=== PATIENT | female | born 1965 | race African-American/Black ===

== ENCOUNTER 2024-05-14 09:49 | Outpatient (AMB) | payer OTHER, SELFPAY ==
--- NOTE | 2024-05-14 09:50 | AM.OFFWIN_ITS ---
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 She did begin vomiting. She rested in bed all day. Vomiting stopped by the end of the day. Vomiting was nonbloody. She did not take any at-home medications. The next day however she continued to feel a mucus in the back of her throat. Her belly felt bloated and gassy. She denies any abdominal pain. She has been able to tolerate Tea and a bland diet. She denies any medical history. She does not currently have a primary care provider. She denies any sick contacts, recent travel, fever, chills, chest pain, sob, reba rrhea, abdominal pain. She also complains of a corn on the bottom of her left foot. Exam: Awake alert NAD, accompanied by Son Scleras nonicteric MMM Pharynx within normal limits Regular rate and rhythm Lung sounds clear to auscultation bilat Abdomen is soft, normoactive bowel sounds, nontender [place] plantar aspect left foot Plan: Supportive care to include liberal hydration, diet as tolerated. Start famotidine to help with what sounds like reflux symptoms status post gastro enteritis. We will prescribe p.r.n. Zofran to help with any nausea or vomiting. However this seems to have resolved at this time. I have encouraged her to establish care with a primary care provider here to get a referral to treat the corn on the bottom of her left foot. I have asked the net front end developer to arrange this. In regards to her chief complaint of nausea and vomiting, this should resolve. Educated on reasons to return to the office sooner. This note is constructed using voice recognition software. While every effort has been made to ensure accuracy in building inspection engineer, still errors may have been included Sometimes, these errors may affect the content or meaning of the given sentence . PFSH Social History Patient Tobacco Use Status: Never used Tobacco Physical Exam Vital Signs: Last Vital Signs Temp 97.9 F 05/14/24 09:55 Pulse 86 05/14/24 09:55 Resp 15 05/14/24 09:55 BP 134/76 05/14/24 09:55 Pulse Ox 96 05/14/24 09:55 Oxygen Delivery Method Room Air 05/14/24 09:55 BMI result Body Mass Index 33.0 Assessment & Plan Assessment & Plan (1) Gastroenteritis: Code(s): K52.9 - Noninfective gastroenteritis and colitis, unspecified Plan: . (2) GERD without esophagitis: Code(s): K21.9 - Gastro-esophageal reflux disease without esophagitis Plan: . (3) [place] of foot: Code(s): L84 - Corns and callosities Plan: . Medications: New famotidine 20 mg PO BEDTIME 30 tabs 0RF ondansetron HCl 4 mg PO Q8H 3 days PRN 15 tabs 0RF nausea and vomiting Coding Level of Care Code Est Pt Level 4 (65289) Diagnoses Gastroenteritis K52.9 GERD without esophagitis K21.9 [place] of foot L84
[2024-05-14 09:55] VITALS: BP 134/76; PULSE 86; RESP 15; TEMP 36.6; O2SAT 96; BMI 33.0
== END 2024-05-14 10:14 | disposition home or self-care (01) ==
PROVIDERS: PCP Family Medicine; Visit Provider Nurse Practitioner Family
DX: K52.9 Noninfective gastroenteritis and colitis, unspecified (principal); K21.9 Gastro-esophageal reflux disease without esophagitis; L84 Corns and callosities
CPT/HCPCS: 99214

== ENCOUNTER 2024-05-19 09:26 | Outpatient (AMB) | payer OTHER, SELFPAY ==
--- NOTE | 2024-05-19 09:28 | MHC.PC.OV ---
Vital Signs 05/19/24 09:32 Height 5 ft 2 in Weight 179 lb BMI 32.7 BP 102/64 Blood Pressure Location Rt brachial Position Sitting Respiration 12 Pulse 76 Pulse Source Pulse Oximeter Pulse Oximetry (%) 97 Oxygen Delivery Method Room Air Intake Visit Reasons: est care Intake Note: Patient is here to establish care and reports no concerns at this time. Color Specialist Required: No Accompanied by: Self / Same As Patient Allergies No Known Allergies Allergy (Verified 05/19/24 09:37) Tobacco use date assessed: 05/19/24 Dental Screening Dental Screen Date: 05/19/24 Did you have a dental visit in the last 12 months?: No Did you have a dental problem in the last 6 months where you did not have access to dental care?: No Was dental information given to patient?: Yes HPI HPI Comments History of Present Illness Details 58 year old female with no chronic health conditions presenting to establish [facility] She has a corn on the bottom of her foot. Was bothering her quite a bit a few weeks ago but discomfort has subsided. She did not try any over the counter remedies She was recently seen in urgent care for dyspepsia. Symptoms have resolved. 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 Declines colonoscopy ROS see HPI PHYSICAL EXAM: GENERAL: Alert and oriented x 3. NAD EYES: EOMI. Anicteric. HENT: Moist mucous membranes. No scleral icterus. No cervical lymphadenopathy. LUNGS: Clear to auscultation bilaterally. CARDIOVASCULAR: Regular rate and rhythm. No murmur. No JVD. ABDOMEN: Soft, non-tender +bs EXTREMITIES: No edema. Non-tender. SKIN: No rashes or lesions. Warm. NEUROLOGIC: No focal neurological deficits. CN II-XII grossly intact PSYCHIATRIC: Cooperative. Appropriate mood and affect [facility], [facility] Medical History Gastroenteritis [place] of foot GERD without esophagitis Surgical History No pertinent past surgical history Social History Household Members: Children Housing: House Are you a primary landcare officer to a significant other at home: No Do you presently have visiting nurse or other home services: No Alcohol intake: never Patient Tobacco Use Status: Never used Tobacco e-Cigarette/Vaping Use: Never Used service: No Current occupational status: employed Current occupation: [employer] Cognitive needs: No Hearing needs: No Vision needs: Yes (wears glasses, needs eye doctor) Questionnaire PHQ-9 Over the last 2 weeks, how often have you been bothered by any of the following problems? 29797 - PHQ-9 Billing: Patient declined-do not bill Source: Developed by Drs. Jaylon Simons, Elsa Smith, Phani Cooper and colleagues, with an educational maude from [employer]. Thrive Questionnaire Date Thrive assessed: 05/19/24 I am a: Patient What is your living situation today?: I choose not to answer this question Within the past 12 months, did the food you bought not last and you didn't have the money to get more?: I choose not to answer this question Within the past 12 months, did you worry whether your food would run out before you got money to buy more?: I choose not to answer this question Do you have trouble paying for medicines?: No Do you have trouble getting transportation to medical appointments?: No Do you have trouble paying your heating and electricity bill?: No Do you have trouble taking care of your child, family member or friend?: No Do you have trouble with day-to-day activities such as bathing, preparing meals, shopping, managing finances, etc.?: I choose not to answer this question Are you currently unemployed and looking for a job?: I choose not to answer this question Are you interested in more education?: I choose not to answer this question Please select the resources that you would like help with: Education Currently or been in a relationship where the following occur: I choose not to answer THRIVE Score: 0 AUDIT C Alcohol Use Questionnaire (AUDIT-C) 1. How often do you have a drink containing alcohol?: Never Total Score: 0 DUANE-7 AMB Questionnaire DUANE-7 Date DUANE - 7 assessed: 05/19/24 Feeling nervous, anxious, or on edge: 0 = Not at all Not being able to stop or control worryin = Not at all Worrying too much about different things: 0 = Not at all Trouble relaxin = Not at all Being so restless that it is hard to sit still: 0 = Not at all Becoming easily annoyed or irritable: 0 = Not at all Feeling afraid as if something awful might happen: 0 = Not at all Total DUANE-7 score (0-4 normal; 5-9 mild; 10-14 moderate; 15-21 severe): 0 Source: Developed by Drs. Jaylon Simons, Elsa Smith, Phani Cooper and colleagues, with an educational maude from [employer]. DUANE-7 Assessment Billing DUANE-7 Assessment Tool: DUANE-7 Assessment 27166 Physical exam (Primary Care) Vital Signs: Last Vital Signs Pulse 76 05/19/24 09:32 Resp 12 05/19/24 09:32 BP 102/64 05/19/24 09:32 Pulse Ox 97 05/19/24 09:32 Oxygen Delivery Method Room Air 05/19/24 09:32 BMI result Body Mass Index 32.7 Tobacco/Smoking Status: Tobacco use Status Tobacco use date assessed 05/19/24 05/19/24 09:44 Patient Tobacco Use Status Never used Tobacco 05/19/24 09:43 e-Cigarette/Vaping Use Never Used 05/19/24 09:44 Thrive Assessment: Date of Thrive Assessment Date Thrive assessed 05/19/24 05/19/24 09:28 Currently or been in a relationship where the following occur: I choose not to answer Assessment and Plan Assessment & Plan (1) Establishing care with new doctor, encounter for: Code(s): Z76.89 - Persons encountering health services in other specified circumstances Plan: 58 year old female to establish care. Past medical surgical social and family history reviewed. Cologuard, labs ordered. [place] is improving (2) GERD without esophagitis: Code(s): K21.9 - Gastro-esophageal reflux disease without esophagitis Plan: Mostly resolved. Continue pepcid prn Orders: Orders Comprehensive Met. Panel Today K21.9 - Gastro-esophageal reflux disease without esophagitis, R53.83 - Other fatigue, Z13.0 - Encounter for screening for diseases of the blood and blood-forming organs and certain disorders involving the immune mechanism, Z13.220 - Encounter for screening for lipoid disorders, Z13.228 - Encounter for screening for other metabolic disorders, Z76.89 - Persons encountering health services in other specified circumstances TSH reflex Free T4 Today K21.9 - Gastro-esophageal reflux disease without esophagitis, R53.83 - Other fatigue, Z13.0 - Encounter for screening for diseases of the blood and blood-forming organs and certain disorders involving the immune mechanism, Z13.220 - Encounter for screening for lipoid disorders, Z13.228 - Encounter for screening for other metabolic disorders, Z76.89 - Persons encountering health services in other specified circumstances Vitamin B12 and Folate Today K21.9 - Gastro-esophageal reflux disease without esophagitis, R53.83 - Other fatigue, Z13.0 - Encounter for screening for diseases of the blood and blood-forming organs and certain disorders involving the immune mechanism, Z13.220 - Encounter for screening for lipoid disorders, Z13.228 - Encounter for screening for other metabolic disorders, Z76.89 - Persons encountering health services in other specified circumstances Vitamin D 25-OH (D2 and D3) Today K21.9 - Gastro-esophageal reflux disease without esophagitis, R53.83 - Other fatigue, Z13.0 - Encounter for screening for diseases of the blood and blood-forming organs and certain disorders involving the immune mechanism, Z13.220 - Encounter for screening for lipoid disorders, Z13.228 - Encounter for screening for other metabolic disorders, Z76.89 - Persons encountering health services in other specified circumstances Complete Blood Count Auto Diff Today K21.9 - Gastro-esophageal reflux disease without esophagitis, R53.83 - Other fatigue, Z13.0 - Encounter for screening for diseases of the blood and blood-forming organs and certain disorders involving the immune mechanism, Z13.220 - Encounter for screening for lipoid disorders, Z13.228 - Encounter for screening for other metabolic disorders, Z76.89 - Persons encountering health services in other specified circumstances Lipid Panel Today K21.9 - Gastro-esophageal reflux disease without esophagitis, R53.83 - Other fatigue, Z13.0 - Encounter for screening for diseases of the blood and blood-forming organs and certain disorders involving the immune mechanism, Z13.220 - Encounter for screening for lipoid disorders, Z13.228 - Encounter for screening for other metabolic disorders, Z76.89 - Persons encountering health services in other specified circumstances Coding Level of Care Code New Pt Prev Care 40-64y(84328) Diagnoses Establishing care with new doctor, encounter for Z76.89 GERD without esophagitis K21.9 Additional Codes DUANE-7 Assessment Billing - DUANE-7 Assessment Tool: DUANE-7 Assessment 45843 ([id number])
[2024-05-19 09:32] VITALS: BP 102/64; PULSE 76; RESP 12; O2SAT 97; BMI 32.7
== END 2024-05-19 10:06 | disposition home or self-care (01) ==
PROVIDERS: PCP Family Medicine; Visit Provider Internal Medicine
DX: K21.9 Gastro-esophageal reflux disease without esophagitis (principal)
CPT/HCPCS: 99203

== ENCOUNTER 2024-05-19 10:25 | Outpatient (REF) | payer OTHER, SELFPAY ==
[2024-05-19 14:09] LABS: MANUAL DIFF FLAG NO
[2024-05-19 14:14] LABS: Basophils Percent Auto 0.8 % (0-2); Eosinophils Absolute Auto 0.1 X10*3/uL (0.0-0.4); Eosinophils Percent Auto 2.3 % (0-4); Hematocrit 39.5 % (37.0-47.0); Hemoglobin 12.3 g/dl (12.0-16.0); Imm Gran Abs Auto 0.01 X10*3/uL (0.00-0.03); Imm Gran Pct Auto 0.3 % (0.0-0.4); Lymphocytes Absolute Auto 1.1 X10*3/uL (1.2-4.9); Lymphocytes Percent Auto 28.3 % (20-40); Mean Corpuscular HGB Conc 31.1 g/dl (31.0-35.0); Mean Corpuscular Hemoglobin 27.8 pg (27.0-33.0); Mean Corpuscular Volume 89.2 fL (80.0-98.0); Mean Platelet Volume 10.6 fL (9.4-12.3); Monocytes Absolute Auto 0.3 X10*3/uL (0.1-1.2); Monocytes Percent Auto 6.7 % (2-11); Neutrophils Absolute Auto 2.4 x10*3/uL (2.0-8.3); Neutrophils Percent Auto 61.6 % (45-73); Platelet Count 290 X10*3/uL (160-400); Red Blood Count 4.43 X10*6/uL (4.20-5.50); Red Cell Distribution Width 14.1 % (11.0-16.0); White Blood Count 3.9 X10*3/uL (4.8-10.8)
[2024-05-19 14:39] LABS: Alanine Aminotransferase 14 U/L (0-31); Albumin Level 4.2 g/dL (3.5-5.0); Alkaline Phosphatase 86 U/L (39-117); Anion Gap 10 (12-20); Aspartate Amino Transferase 18 U/L (5-31); Bilirubin Total 0.5 mg/dL (0.0-1.0); Blood Urea Nitrogen 9 mg/dL (9-16); Calcium 9.8 mg/dL (8.4-10.2); Carbon Dioxide 27 mmol/L (22-29); Chloride 107 mmol/L (96-108); Cholesterol 199 mg/dL (<200); Estimated Glomerular Filt Rate > 60; Glucose Random 74 mg/dL (60-115); HDL Cholesterol 54 mg/dL (>40); LDL Cholesterol Calculated 129 mg/dL (<100); Sodium 140 mmol/L (135-145); Total Protein 7.3 g/dL (6.5-8.0); Triglycerides 84 mg/dL (<150)
[2024-05-19 15:03] LABS: Folate 11.1 ng/mL (> or = 4.0); Vitamin B12 680 pg/mL (200-900)
[2024-05-23 15:48] LABS: Vitamin D 25-OH, D2 <4 ng/mL; Vitamin D 25-OH, D3 26 ng/mL; Vitamin D 25-OH, Total 26 ng/mL (30-100)
== END 2024-05-19 10:26 | disposition home or self-care (01) ==
LOC: HO.WFDLDS 10:25
PROVIDERS: Visit Provider Internal Medicine
DX: Z76.89 Persons encountering health services in other specified circumstances (principal); K21.9 Gastro-esophageal reflux disease without esophagitis; Z13.0 Encounter for screening for diseases of the blood and blood-forming organs and certain disorders involving the immune mechanism; Z13.228 Encounter for screening for other metabolic disorders; Z13.220 Encounter for screening for lipoid disorders; R53.83 Other fatigue
CPT/HCPCS: 36415; 80053; 80061; 82306; 82607; 82746; 84443; 85025

== ENCOUNTER 2024-12-25 09:11 | Outpatient (AMB) | payer OTHER, SELFPAY ==
--- NOTE | 2024-12-25 09:23 | A.OFFPC_ITS ---
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 Prior PCP:? Last office visit/CPE:? Acute issue(s):? ?? PMHx:? None SurgHx:? none FHx:? Dad: Glaucoma. SocHx: Nonsmoker. EtOH: None. PFSH Medical History Gastroenteritis [place] of foot GERD without esophagitis Surgical History No pertinent past surgical history Social History Household Members: Children Housing: House Are you a primary point of care technician to a significant other at home: No Do you presently have visiting nurse or other home services: No 75 years or older and lives alone: No Alcohol intake: never Patient Tobacco Use Status: Never used Tobacco e-Cigarette/Vaping Use: Never Used service: No Current occupational status: employed Current occupation: [employer] Cognitive needs: No Hearing needs: No Vision needs: Yes (wears glasses, needs eye doctor) Questionnaire PHQ-9 Over the last 2 weeks, how often have you been bothered by any of the following problems? 1. Little interest or pleasure in doing things: not at all 2. Feeling down, depressed, or hopeless: not at all 4. Feeling tired or having little energy: not at all 5. Poor appetite or overeating: not at all 6. Feeling bad about yourself - or that you are a failure or have let yourself or your family down: not at all 7. Trouble concentrating on things, such as reading the newspaper or watching television: not at all 8. Moving or speaking so slowly that other people could have noticed. Or the opposite - being so fidgety or restless that you have been moving around a lot more than usual: not at all 9. Thoughts that you would be better off or of hurting yourself in some way: not at all Source: Developed by Drs. Jaylon Simons, Elsa Smith, Phani Cooper and colleagues, with an educational maude from [employer]. Thrive Questionnaire Date Thrive assessed: 12/25/24 I am a: Patient What is your living situation today?: I choose not to answer this question Within the past 12 months, did the food you bought not last and you didn't have the money to get more?: I choose not to answer this question Within the past 12 months, did you worry whether your food would run out before you got money to buy more?: I choose not to answer this question Do you have trouble paying for medicines?: I choose not to answer this question Do you have trouble getting transportation to medical appointments?: I choose not to answer this question Do you have trouble paying your heating and electricity bill?: I choose not to answer this question Do you have trouble taking care of your child, family member or friend?: I choose not to answer this question Do you have trouble with day-to-day activities such as bathing, preparing meals, shopping, managing finances, etc.?: I choose not to answer this question Are you currently unemployed and looking for a job?: I choose not to answer this question Are you interested in more education?: I choose not to answer this question Please select the resources that you would like help with: Education Currently or been in a relationship where the following occur: I choose not to answer THRIVE Score: 0 AUDIT C Alcohol Use Questionnaire (AUDIT-C) 1. How often do you have a drink containing alcohol?: Never Total Score: 0 Score Reviewed/Action Taken: Yes DUANE-7 AMB Questionnaire DUANE-7 Date DUANE - 7 assessed: 12/25/24 Feeling nervous, anxious, or on edge: 0 = Not at all Not being able to stop or control worryin = Not at all Worrying too much about different things: 0 = Not at all Trouble relaxin = Not at all Being so restless that it is hard to sit still: 0 = Not at all Becoming easily annoyed or irritable: 0 = Not at all Feeling afraid as if something awful might happen: 0 = Not at all Total DUANE-7 score (0-4 normal; 5-9 mild; 10-14 moderate; 15-21 severe): 0 Source: Developed by Drs. Jaylon Simons, Elsa Smith, Phani Cooper and colleagues, with an educational maude from [employer]. DUANE-7 Assessment Billing DUANE-7 Assessment Tool: DUANE-7 Assessment 30261 Review of Systems Const Denies chills, Denies fatigue, Denies fever(s), Denies headache(s) and Denies weakness Eyes Denies change in vision ENT Denies dizziness, Denies headache(s), Denies hearing loss, Denies nasal congestion, Denies sinus pain, Denies sinus pressure and Denies sore throat Card Denies chest pain, Denies lightheadedness, Denies dyspnea and Denies other (palpitations) Resp Denies cough, Denies dyspnea and Denies wheezing GI Denies abdominal pain, Denies melena, Denies hematochezia, Denies change in bowel habits, Denies dyspepsia and Denies nausea Denies hematuria and Denies dysuria Musc Denies abnormal gait, Denies myalgias, Denies arthralgias, Denies numbness and Denies tingling Skin/Breast Denies rash, Denies unusual bruising and Denies wounds Neuro Denies abnormal gait, Denies dizziness, Denies headache(s), Denies memory loss, Denies numbness, Denies Sensory deficit (Neuro), Denies tingling and Denies weakness Psych Denies anxiety, Denies depression and Denies memory loss Endo Denies cold intolerance, Denies fatigue, Denies heat intolerance, Denies polydipsia and Denies polyuria Brenden/Lymph Denies easy bleeding and Denies easy bruising Aller/Immun Denies wheezing Physical exam (Primary Care) Vital Signs: Last Vital Signs Temp 97.8 F 12/25/24 09:36 Pulse 84 12/25/24 09:36 Resp 14 12/25/24 09:36 BP 120/78 12/25/24 09:36 Pulse Ox 97 12/25/24 09:36 Oxygen Delivery Method Room Air 12/25/24 09:36 BMI result Body Mass Index 33.1 Tobacco/Smoking Status: Tobacco use Status Tobacco use date assessed 12/25/24 12/25/24 09:39 Patient Tobacco Use Status Never used Tobacco 12/25/24 09:24 e-Cigarette/Vaping Use Never Used 12/25/24 09:24 Thrive Assessment: Date of Thrive Assessment Date Thrive assessed 12/25/24 12/25/24 09:39 Currently or been in a relationship where the following occur: I choose not to answer Const General: no acute distress, well developed, alert and awake Nutritional Appearance: well nourished Orientation/consciousness: patient oriented x3 HENMT Head: Yes normocephalic and Yes atraumatic Ears: hearing grossly normal bilaterally and TM's normal bilaterally General nose exam: Normal external nose present and Normal nares present Mouth: Normal oral and palatal mucosa present and moist mucous membranes Teeth and gingiva: dentition normal Throat: Yes posterior oropharynx normal Eyes General: appearance normal, both eyes and all related structures Pupils: Equal, round and reactive pupils present and Pupil accommodation reflex normal EOM: EOMs intact bilaterally Neck Neck: Yes normal visual inspection, Yes no lymphadenopathy and Yes trachea midline Thyroid: Thyroid normal Carotids: no bruits Lymphatic: no lymphadenopathy noted Chest Chest palpation & inspection: normal inspection of the chest Resp Effort & Inspection: normal respiratory effort Auscultation: clear to auscultation bilaterally Cardio Rate: regular rate Rhythm: regular rhythm Heart sounds: S1 normal heart sound present, S2 normal heart sound present, no gallops, no murmurs and no rubs Bruits: no abdominal aortic bruits and no carotid bruits GI Palpation (GI): No Abdominal aortic bruit present, Soft to palpation, nontender, No hepatosplenomegaly present and No Rebound tenderness present Auscultation: normal bowel sounds General: Yes no CVA tenderness Back/Spine/Pelvis Back: no CVA tenderness Cervical Spine: cervical ROM normal and No Cervical spine tenderness Thoracic/Lumbar Spine: thoraco-lumbar ROM normal, No pain with thoraco-lumbar ROM, No thoracic spinal tenderness and No lumbar spinal tenderness Skin Lesions: no lesions Rashes: no rashes Trauma: no lacerations or abrasions Wounds: no wounds Nails: normal Neuro General: patient oriented x3 Cranial nerves: Yes Equal, round and reactive pupils present Cognition (Neuro): normal cognition Gait exam (Neuro): Normal gait present Motor exam (neuro): 5/5 motor strength present throughout Sensory Exam: No Sensory deficit (Neuro) Deep tendon reflexes (DTR's): Right patellar reflex intensity grade: 2+ and Left patellar reflex intensity grade: 2+ Extrem General: Yes normal to inspection and No edema Psych Appearance: grossly normal Affect: normal affect Attitude: cooperative Thought process: Normal thought process present Coding Level of Care Code New Pt Level 3 (03938) New Pt Prev Care 40-64y(28554) Diagnoses Adult general medical examination Z00.00 GERD without esophagitis K21.9 Additional Codes DUANE-7 Assessment Billing - DUANE-7 Assessment Tool: DUANE-7 Assessment 19140 ([id number]) Assessment & Plan Assessment & Plan (1) Adult general medical examination: Code(s): Z00.00 - Encounter for general adult medical examination without abnormal findings Category: Medical Plan: 59-year-old?female?presents?as?new?patient?for?complete?physical?exam Exam?within?limits Encouraged?healthy?diet?with?active?lifestyle?and?plenty?of?exercise (2) GERD without esophagitis: Code(s): K21.9 - Gastro-esophageal reflux disease without esophagitis Category: Medical Plan: h/o GERD sxs. This?appears?to?be?resolved Plan She?can?schedule?a?telemedicine?appointment?for?next?month?to?review?lab?work. Will?also?discuss?health?maintenance?including?colon?cancer?screening,?cervical? cancer?screening?breast?cancer?screening. Orders: Orders Complete Blood Count Auto Diff Today Z00.00 - Encounter for general adult medical examination without abnormal findings Lipid Panel Today Z00.00 - Encounter for general adult medical examination without abnormal findings Comprehensive [place]. Panel Fast Today Z00.00 - Encounter for general adult medical examination without abnormal findings Microalbumin, Random (w Creat) Today I10 - Essential (primary) hypertension UA CC w/rflx Micro + Cult Today Z00.00 - Encounter for general adult medical examination without abnormal findings TSH reflex Free T4 Today Z00.00 - Encounter for general adult medical examination without abnormal findings Hemoglobin A1c Today R73.01 - Impaired fasting glucose
[2024-12-25 09:36] VITALS: BP 120/78; PULSE 84; RESP 14; TEMP 36.6; O2SAT 97; BMI 33.1
--- OUTSIDE RECORDS SUMMARY | 2024-12-25 09:39 | XMS_ITS | Encounter Summary ---
Author Organization [facility] Address [address] [place] [address] Care Team Providers Care Hairmasters Manager Name Role Phone Barbara Gray MD Primary Care Provider + Encounter Details Date Type Department Care Team (Late st Contact Info) Description 11/09/2020 Interim Notes [facility] [address] [place] [address] Conrado Mota PA [address] [place] [address] Visit for screening mammogram (Primary Dx) Social History Tobacco Use Types Packs/Day Years Used Date Smoking Tobacco: Never Smokeless Tobacco: Never Comments:never smoker Alcohol Use Standard Drinks/Week Comments No 0 (1 standard drink = 0.6 oz pur e alcohol) Social Connections Answer Date Recorded Social Connections and Isolation 0 05/03/2019 Financial Resource Strain Answer Date R ecorded Financial Resource Strain 0 2018 Stress Answer Date Recorded Stress 0 05/03/2019 Physical Activity Answer Date Recorded Physical Activity 0 05/03/2019 Food Insecurity Answer Date Recorded Food 0 05/03/2019 Transportation Needs Answer Date Record ed Transportation 0 05/03/2019 Housing Stability Answer Date Recorded Housing 0 05/03/2019 Safety and Environment Answer Date Raul rded Safety 0 05/03/2019 Utilities Answer Date Recorded Utilities 0 05/03/2019 Employment Answer Date Recorded Employment 0 05/03/2019 Comments No Sex and Gender Information Value Date Recorded Sex Assigned at Female 09/28/2019 5:55 PM PST Legal Sex Female 9:23 PM PST Gender Identity Female 09/19/2019 10:11 AM PST Sexual Orientation Straight 09/19/2019 10 :11 AM PST COVID-19 Exposure Response Date Recorded In the last month, have you been in contact with someone who was confirmed or suspected to have Coronavirus / COVID-19? No / Unsure 11/07/2020 1:51 PM PST documented as of this encounter Plan of Treatment Not on file documented as of this encounter Results * SCREENING MAMMOGRAPHY BI 2-VIEW BREAST INC CAD (11/14/2020) MAMMOGRAM NEGATIVE NEGATIVE BI-RADS ASSESSMENT 1 - Negative: means that there is no significant or noticeable abnormality to report. BI-RADS FOLLOW-UP 1 - Routine Screening Anatomical Region Laterality Modality Mammography 11/14/2020 Narrative 11/14/2020 Collected: 11/14/2020 10:38 AM Department of Radiology [facility] ?? Name: ?? Mario Shah : 1965 Sex: Female ? EXAMINATION: DIGITAL BILATERAL TOMOSYNTHESIS SCREENING MAMMOGRAPHY INDICATION: Female, 55 years of age, for annual screening. Patient has no complaints today. Patient is post menopausal. TECHNIQUE: Bilateral full field digital mammography and bilateral digital breast tomosynthesis was performed and interpreted with the aid of CAD software. COMPARISON: Comparison is made with relevant prior imaging dating back to 09/20/2009. COMPOSITION: There are scattered areas of fibroglandular density. FINDINGS: There are no suspicious masses, suspicious groups of calcifications or areas of architectural distortion. IMPRESSION: No mammographic evidence of malignancy. BI-RADS 1 - Negative RECOMMENDATION: Routine annual screening. The patient was sent a letter with the results of the exam and recommendations. The patient was also entered into the reminder system to be notified when her next screening mammogram is due. I personally reviewed the study and agree with the dictated report. ?? Dictated By: DALIA RÍOS, DO ?Date: 11/22/2020 03:51 PM Electronically Signed By: EDUARDO FUNES M.D. ?Date: 11/22/2020 03:51 PM [facility] Amber-Sherrill Entzminger PA IMG MAMMO Fi nal Result documented in this encounter Visit Diagnoses Diagnosis Visit for screening mammogram- Primary Other screening mammogram documented in this encounter Care Teams Hairmasters Manager Relationship Specialty Start Date End Date Barbara Gray MD [address] [place] [address] PCP - General 04/02/22 documented as of this encounter
--- OUTSIDE RECORDS SUMMARY | 2024-12-25 09:39 | XMS_ITS | Clinical Summary ---
Author Organization [facility] Address [address] [place] [address] Care Team Providers Care [employer] Lieutenant Name Role Phone Barbara Gray MD Primary Care Provider + Source Comments PLEASE NOTE, if this patient is a minor, it may be UNLAWFUL to discuss sensitive information that is contained in these records (such as FAMILY PLANNING, MENTAL HEALTH or SUBSTANCE ABUSE) with the minor patient's parent or other person without the patient's specific authorization.[facility] Allergies No known active allergies Medications clobetasoL (CLOBEX) 0.05 % external liquidIndicatio ns:Itchy scalp Apply topically 2 (two) times daily For 2 weeks 59 mL 1 1 Active ketoconazole (NIZORAL) 2 % shampooIndicati ons:Itchy scalp Apply topically once daily as needed for itching 120 mL 2 1 Active ARTIFICIAL TEARS, POLYVIN ALC, 1.4 % ophthalmic solutionIndicat ions:Dry eye syndrome of both eyes Place 1 Drop into both eyes 4(four) times daily 15 mL 11 1 Active amitriptyline (ELAVIL) 10 mg tablet Take 10 mg by mouth once daily 2 Active Active Problems Problem Noted Date Diagnosed Date History of influenza vaccine allergy 09/04/2020 Exposure to 2019 novel coronavirus 12/22/2019 Assessment & Plan (12/22/2019 5:04 PM EDT): Reviewed possible diagnosis COVID test today - confirmed phone # for call back by Dallin BAHENA Weesh Team in 2 to 5 days. Pt to self quarantine pending COVID 19 lab results Handout reviewed and given to pt -Call or rtc in 3-5 days or sooner if symptoms worsen or any concerns. UC note routed to PCP Work letter given to pt work letter also faxed to fax #: [phone] Musculoskeletal neck pain 12/22/2019 Assessment & Plan (12/22/2019 5:03 PM EDT): Reviewed diagnosis Use tylenol prn for pain. Handout reviewed and given to pt -Call or rtc in 3-5 days or sooner if symptoms worsen or any concerns. 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 not interested in STD testing Health Maintenance: pap due March 2023 -S/p 2 doses covid, 06/01, and early May -declines booster -declines flu vaccine -fit Herpesviral infection of urogenital system 06/11 Seborrheic dermatitis 06/11/2012 Nonspecific reaction to tube rculin skin test without active tuberculosis 12/28/2010 Gastro-esophageal reflux disease without esophag itis 04/12/2010 Allergic rhinitis due to pollen 09/27/2009 Resolved Problems Problem Noted Date Diagnosed Date Resolved Date Vaginal hemorrhage 05/26/2012 0 Immunizations Immunization Administration Dates Next Due HEP B, PED/ADOL 01/08/2022,12/11/2021 Hep B, Unspecified 09/17/2011,04/03/2011, 011 INFLUENZA, UNSPECIFIED 06/11/2013,05/26/2012 PFIZER COVID VACCINE, PURPLE CAP, 12+ 06/01/2021 ,05/10/2021 TDAP 09/21/2019 Td (adult) unspecified 12/28/2010 Family History Medical History Relation Name Comments No Known Problems Brother No Known Problems Daughter Blindness Father Glaucoma Father No Known Problems Maternal Aunt No Known Problems Maternal Grandfather No Known Problems Maternal Grandmother No Known Problems Maternal Uncle No Known Problems Mother No Known Problems Other No Known Problems Paternal Aunt No Known Problems Paternal Grandfather No Known Problems Paternal Grandmother No Known Problems Paternal Uncle No Known Problems Sister No Known Problems Son Amblyopia Neg Cancer Neg Cataracts Neg Diabetes Neg Fuchs' Dystrophy Neg Heart Problems Neg Hypertension Neg Macular degeneration Neg Retinal detachment Neg Strabismus Neg Stroke Neg Thyroid Disease Neg Relation Name Status Comments Brother Daughter Father Maternal Aunt Maternal Grandfather Maternal Grandmother Maternal Uncle Mother Other Paternal Aunt Paternal Grandfather Paternal Grandmother Paternal Uncle Sister Son Social History Tobacco Use Types Packs/Day Years Used Date Smoking Tobacco: Never Smokeless Tobacco: Never Tobacco Cessation:Counseling Given: No Comments:never smoker Alcohol Use Standard Drinks/Week Comments [...] Orientation Straight 09/19/2019 10 :11 AM PST Last Filed Vital Signs Vital Sign Reading Time Taken Comments Blood Pressure 106/71 01/08/2022 3:26 PM EDT Pulse 89 01/08/2022 3:26 PM EDT Temperature 36.6 ??C (97.9 ??F) 01/08/2022 3:26 PM ED T Respiratory Rate 19 01/08/2022 3:26 PM EDT Oxygen Saturation 96% 01/08/2022 3:26 PM EDT Inhaled Oxygen Concentration - - Weight 85.2 kg (187 lb 12.8 oz) 022 10:40 AM EDT Height 157.2 cm (5' 1.89 ) 11/10/2021 3:30 PM ES T Body Mass Index 34.47 11/10/2021 3:30 PM EST Plan of Treatment Health Maintenance Due Date Last Done Comments Anxiety Screening 1965 HPV Screening [address] Colonography 2012 Colonoscopy 2012 Fecal DNA 2012 Flexible Sigmoidoscopy 2012 Imm-Zoster, Recombinant (1 of 2) 2017 Pap Smear 03/29/2021 03/29/2018, 03/0 12/2012, 10/23/2011 Annual Preventive Care Visit 11/10/202212/2021, 10/17/2020, 09/21/2019, Additional history exists Diabetes Screening 11/10/2022 11/10/2021, 0 10/17/2020, 10/17/2020, Additional history exists Breast Cancer Screening (Mammogram) 11/14/2022 11/14/2020, 11/14/2020 Colorectal Cancer Screening 11/16/2022 FIT/gFOBT 11/16/2022 11/16/2021, 02/0 04/2021, 09/25/2019 Hypertension Screening (#1) 01/08/2023 Cervical Cancer Screening 03/29/2023 Pap + HPV 03/29/2023 03/29/2018, 11/10/2012 [id number] ( season) 2024 021, 05/10/2021 Imm-Influenza (#1) 2024 06/04/2016, 1 , 06/11/2013, Additional history exists Alcohol and Drug Screen 09/09/2024 10/17/19 21, 09/21/2019, 03/29/2018 Depression Annual Screen 09/09/2024 Lipid Screening 11/10/2026 11/10/2021, 04/2021, 09/21/2019, Additional history exists Imm-DTaP/Tdap/Td (2 - Td or Tdap) 09/21/2029 020, 12/28/2010 HIV Screening Completed 03/29/2018, 06/11/2012 Hepatitis C Screening Completed 10/17/2020 Imm-Hepatitis B Completed 01/08/2022, 12/2021, 09/17/2011, Additional history exists Cervical Ablation/Cold-Knife Conization Discontinued Cervical Cryotherapy Discontinued Colposcopy Discontinued Endometrial Biopsy Discontinued Excision/Leep Discontinued HPV Genotyping Discontinued Vaginal Pap Discontinued Vulvoscopy Discontinued Procedures Procedure Name Priority Date/Time Associated Diagnosis Comments FECAL GLOBIN BY IMMUNOCHEMISTRY (FIT) Routine 11/16/2021 11:46 AM EST Routine adult health maintenance HB A1C Routine 11/10/2021 5:27 PM EST Routine adult health maintenance LIPID PANEL Routine 11/10/2021 5:27 PM EST Routine adult health maintenance SCREENING MAMMOGRAPHY BI 2-VIEW BREAST INC CAD Routine 11/14/2020 Visit for screening mammogram HEP C AB Routine 10/17/2020 8:14 PM EST Encounter for well adult exam with abnormal findings THIN PREP IMAGE PAP + HPV RNA (Q) Routine 03/29/2018 11:09 AM EDT Encounter for general adult medical examination without abnormal findings HIV 4TH GEN Routine 03/29/2018 10:25 AM EDT Encounter for general adult medical examination without abnormal findings from Last 3 Months or Most Recently Relevant to Health Maintenance Results * FECAL GLOBIN BY IMMUNOCHEMISTRY (FIT) (11/16/2021 11:46 AM EST) FIT Negative Negative [facility] Stool Stool specimen / Unknown 11/16/2021 11:46 AM EST 11/16/2021 11:04 AM EST Komal Cowan MD LAB - NO BLOOD DRAW Final Res ult [facility] CLIA# [id number] [address] [place] [address], * (ABNORMAL) HB A1C (11/10/2021 5:27 PM EST) HEMOGLOBIN A1C 5.7(H) <5.7 % of total Hgb [facility]) Comment: For someone without known diabetes, a hemoglobin A1c value between 5.7% and 6.4% is consistent with prediabetes and should be confirmed with a follow-up test. For someone with known diabetes, a value <7% indicates that their diabetes is well controlled. A1c targets should be individualized based on duration of diabetes, age, comorbid conditions, and other considerations. This assay result is consistent with an increased risk of diabetes. Currently, no consensus exists regarding use of hemoglobin A1c for diagnosis of diabetes for children. Whole Blood 11/10/2021 5:27 PM EST 11/10/2021 5:27 PM EST Narrative [facility]) - 11/11/2021 11:32 AM EST patient is not fasting. [facility] Testing performed at: 2, [facility], [address] [place] [address], [address], [place], [address], Ride Attendant: Lasha Ellis [facility] Collection Date/Time: [id number] [facility] Results Received Date/Time: [id number] [facility] Reported Date/Time: [id number] us Komal Cowan MD LAB - BLOOD DRAW Final Result [facility] [employer] [address] CLIA #[id number] [place] [address], * (ABNORMAL) LIPID PANEL (11/10/2021 5:27 PM EST) CHOLESTEROL, TOTAL 213(H) <200 mg/dL [facility] HDL CHOLESTEROL 53 > OR = 50 mg/dL [facility]) TRIGLYCERIDES 82 <150 mg/dL [facility]) LDL-CHOLESTEROL 141(H) mg/dL (calc) [facility] Comment: Reference range: <100 Desirable range <100 mg/dL for primary prevention; ?? <70 mg/dL for patients with CHD or diabetic patients with > or = 2 CHD risk factors. LDL-C is now calculated using the Rowdy-Walker calculation, which is a validated novel method providing better accuracy than the Friedewald equation in the estimation of LDL-C. Rowdy CONNELLY et al. RINA. 2013;310(19): 3862-9997 (http://education.Sensr.net.Agency Spotter/faq/CRN637) CHOL/HDLC RATIO 4.0 <5.0 (calc) [facility] NON HDL CHOLESTEROL 160(H) <130 mg/dL (calc) [facility] Comment: For patients with diabetes plus 1 major ASCVD risk factor, treating to a non-HDL-C goal of <100 mg/dL (LDL-C of <70 mg/dL) is considered a therapeutic option. Blood Blood / Unknown 11/10/2021 5 :27 PM EST 11/10/2021 5:27 PM EST Narrative [facility] - 11/11/2021 11:32 AM EST patient is not fasting. [facility] performed at: 2, [facility], [address], [address], [place], [address], Ride Attendant: Lasha Ellis [facility] Collection Date/Time: [id number] [facility] Results Received Date/Time: [id number] [facility] Reported Date/Time: [id number] us Komal Cowan MD LAB - BLOOD DRAW Final Result [facility]) [address] CLIA #[id number] [place] [address], [place] * SCREENING MAMMOGRAPHY BI 2-VIEW BREAST INC CAD (11/14/2020) MAMMOGRAM NEGATIVE NEGATIVE BI-RADS ASSESSMENT 1 - Negative: means that there is no significant or noticeable abnormality to report. BI-RADS FOLLOW-UP 1 - Routine Screening Anatomical Region Laterality Modality Mammography 11/14/2020 Narrative 11/14/2020 Collected: 11/14/2020 10:38 AM Department of Radiology [facility] ?? Name: ?? Mario Shah : [...] EDUARDO FUNES M.D. ?Date: 11/22/2020 03:51 PM [facility] us Conrado BONILLA IMG MAMMO Fi nal Result * HEP C AB (10/17/2020 8:14 PM EST) HEPATITIS C AB Nonreactive Nonreactive [facility] Serum Blood / Unknown 10/17/2020 8 :14 PM EST 10/17/2020 8:14 PM EST Narrative [facility] - 10/18/2020 4:19 PM EST patient is not fasting. us Conrado BONILLA LAB - BLOOD DRAW F inal Result [facility] CLIA# [id number] [address] [place] [address], [place] [phone] * THIN PREP IMAGE PAP + HPV RNA [id number] (Q) (03/29/2018 11:09 AM EDT) CLINICAL INFORMATION SEE NOTE [facility]) Comment:Normal exam LMP SEE NOTE [facility]) Comment:NO LMP RECORDED PREV. PAP 5 [facility]) PREV. BX SEE NOTE [facility] Comment:NG - NOT GIVEN SOURCE Cervix [facility]) STATEMENT OF ADEQUACY SEE NOTE [facility]) Comment: Satisfactory for evaluation. Endocervical/transformation zone component present. INTERPRETATION/RESU LT SEE NOTE [facility]) Comment:Negative for intraep ithelial lesion or malignancy. INFECTION SEE NOTE [facility] Comment: Shift in vaginal alfonzo suggestive of bacterial vaginosis. COMMENT SEE NOTE [facility] Comment: This Pap test has been evaluated with computer assisted technology. PROFESSOR OF ART HISTORY SEE NOTE [facility] Comment: [place], CT(ASCP) CT screening location: [address] ??[address] COMMENT SEE NOTE [facility] Comment: EXPLANATORY NOTE: The Pap is a screening test for cervical cancer. It is not a diagnostic test and is subject to false negative and false positive results. It is most reliable when a satisfactory sample, regularly obtained, is submitted with relevant clinical findings and history, and when the Pap result is evaluated along with historic and current clinical information. HPV MRNA E6/E7 Not Detected Not Detected [facility] Comment: This test was performed using the APTIMA HPV Assay ([employer] This assay detects E6/E7 viral messenger RNA (mRNA) from 14 high-risk HPV types (16,18,31,33,35,39,45,51,52,56,58,59,66,68). The analytical performance characteristics of this assay have been determined by [employer]. The modifications have not been cleared or approved by the FDA. This assay has been validated pursuant to the CLIA regulations and is used for clinical purposes. Cytologic material (specimen) Cervix uteri structure / Unknown 03/29/2018 11:09 AM EDT 03/29/2018 11:10 AM EDT Narrative [facility]) - 04/02/2018 12:58 PM EDT [facility] performed at: NL2, [facility], [address] [facility], [facility], [address], [place], [address], Ride Attendant: Lasha Ellis [facility] Collection Date/Time: [id number] [facility] Results Received Date/Time: [id number] [facility] Reported Date/Time: postmenopausal Gestational Age (if ): Unknown No LMP recorded. Patient is postmenopausal. us Kaur Rosas MD LAB - NO BLOOD DRAW Final Result [facility]) [address] [facility] 3rd FLOOR CLIA #[id number] [place] [address], [place] * HIV 4TH GEN (03/29/2018 10:25 AM EDT) CHIV Nonreactive Nonreactive [facility] Serum specimen (specimen) Blood / Unknown 03/29/2018 10:25 AM EDT 03/29/2018 10:25 AM EDT Narrative [facility] - 03/31/2018 3:37 PM EDT patient is not fasting. us Kaur Rosas MD LAB - BLOOD DRAW Final Re sult [facility] CLIA# [id number] [address] [place] [address], [place] [phone] from Last 3 Months or Most Recently Relevant to Health Maintenance Insurance [employer]AF[employer] NET DENTAL MEDICAID D[employer] Member Subscriber Plan / Payer (Ef fective 2019-Present) Name:Mario Shah Relation to Subscriber:Self Name:Mario Shah Payer ID:[id number] Type:Indemnity Address: [facility] [address] [place] [address] Care Teams [employer] Lieutenant Relationship Specialty Start Date End Date Barbara Gray MD [address] [place] [phone] PCP - General 04/02/22
== END 2024-12-25 10:11 | disposition home or self-care (01) ==
LOC: HO.HMCFM 09:12
PROVIDERS: PCP Family Medicine; Visit Provider Family Medicine
DX: Z00.00 Encounter for general adult medical examination without abnormal findings (principal); K21.9 Gastro-esophageal reflux disease without esophagitis

== ENCOUNTER → 2024-12-25 09:11 | Outpatient (BNVA) | payer OTHER, SELFPAY | PROVIDERS: PCP Family Medicine; Visit Provider Family Medicine | DX: Z00.00 Encounter for general adult medical examination without abnormal findings (principal); K21.9 Gastro-esophageal reflux disease without esophagitis | CPT/HCPCS: 96127 ==

== ENCOUNTER 2024-12-25 10:17 | Outpatient (REF) | payer OTHER, SELFPAY ==
--- OUTSIDE RECORDS SUMMARY | 2024-12-25 11:08 | XMS_ITS | Clinical Summary ---
Author Organization [facility] Address [address] [place] [address] Care Team Providers Care Sec Accountant Name Role Phone Barbara Gray MD Primary [...] # for call back by Dallin BAHENA [employer] Team in 2 to 5 days. Pt to self quarantine pending COVID 19 lab results Handout reviewed and given to pt -Call or rtc in 3-5 days or sooner if symptoms worsen or any concerns. 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, feels safe [...] 03/29/2023 Pap + HPV 03/29/2023 03/29/2018, 11/10/2012 [id number] ( season) 2024 021, 05/10/2021 Imm-Influenza (#1) [...] (11/16/2021 11:46 AM EST) FIT Negative Negative [facility] Stool Stool specimen / Unknown 11/16/2021 11:46 AM EST 11/16/2021 11:04 AM EST Komal Cowan MD LAB - NO BLOOD DRAW Final Res ult [facility] CLIA# [id number] [address] [place] [address], * (ABNORMAL) HB A1C (11/10/2021 5:27 PM EST) HEMOGLOBIN A1C 5.7(H) <5.7 % of total Hgb [facility] Comment: For someone without known diabetes, [...] 11/10/2021 5:27 PM EST Narrative [facility] - 11/11/2021 11:32 AM EST patient is not fasting. [facility] Testing performed at: 2, [facility], [address] [place] [address], [address], [place], [address], Body And Fender Worker: Lasha Ellis [facility] Collection Date/Time: [id number] [facility] Results Received Date/Time: [id number] [facility] Reported Date/Time: [id number] us Komal Cowan MD LAB - BLOOD DRAW Final Result [facility] [address] CLIA #[id number] [place] [address], * (ABNORMAL) LIPID PANEL (11/10/2021 5:27 PM [...] LDL-C. Rowdy CONNELLY et al. RINA. 2013;310(19): 0119-9881 (http://education.Plusmo.Primedic/faq/SPD570) CHOL/HDLC RATIO 4.0 <5.0 (calc) [facility] [...] 11/10/2021 5:27 PM EST Narrative [facility] - 11/11/2021 11:32 AM EST patient is not fasting. [facility] Testing performed at: 2, [facility], [address], [address], [place], [address], Body And Fender Worker: Lasha Ellis [facility] Collection Date/Time: [id number] [facility] Results Received Date/Time: [id number] [facility] Reported Date/Time: [id number] us Komal Cowan MD LAB - BLOOD DRAW Final Result [facility] [address] CLIA #[id number] [place] [address], [place] * SCREENING MAMMOGRAPHY BI 2-VIEW BREAST INC CAD (11/14/2020) MAMMOGRAM NEGATIVE NEGATIVE BI-RADS ASSESSMENT 1 - Negative: means that there is no significant or noticeable abnormality to report. BI-RADS FOLLOW-UP 1 - Routine Screening Anatomical Region Laterality Modality Mammography 11/14/2020 Narrative 11/14/2020 Collected: 11/14/2020 10:38 AM Department of Radiology [facility] ?? Name: ?? Mario Shah : 1965 [...] EDUARDO FUNES M.D. ?Date: 11/22/2020 03:51 PM [facility] us Conrado BONILLA IMG MAMMO Fi nal Result * HEP C AB (10/17/2020 8:14 PM EST) HEPATITIS C AB Nonreactive Nonreactive [facility] Serum Blood / Unknown 10/17/2020 8 :14 PM EST 10/17/2020 8:14 PM EST Narrative [facility] - 10/18/2020 4:19 PM EST patient is not fasting. us Conrado BONILLA LAB - BLOOD DRAW F inal Result [facility] CLIA# [id number] [address] [place] [address], [place] [phone] * THIN PREP IMAGE PAP + HPV RNA [id number] (Q) (03/29/2018 11:09 AM EDT) CLINICAL INFORMATION SEE NOTE [facility] Comment:Normal exam LMP SEE NOTE [facility] Comment:NO LMP RECORDED PREV. PAP 5 [facility]) PREV. BX SEE NOTE [facility] Comment:NG - NOT GIVEN SOURCE Cervix [facility]) STATEMENT OF ADEQUACY SEE NOTE [facility] Comment: Satisfactory for evaluation. Endocervical/transformation zone component present. INTERPRETATION/RESU LT SEE NOTE [facility]) Comment:Negative for intraep ithelial lesion or malignancy. INFECTION SEE NOTE [facility] Comment: Shift in vaginal alfonzo suggestive of bacterial vaginosis. COMMENT SEE NOTE [facility] Comment: This Pap test has been evaluated with computer assisted technology. CUSTOMER EXPERIENCE RETAIL CLERK SEE NOTE [facility] Comment: [place], CT(ASCP) CT screening location: [address] ??[address] COMMENT SEE NOTE [facility] Comment: EXPLANATORY NOTE: The Pap is [...] E6/E7 Not Detected Not Detected [facility] Comment: This test was performed using the APTIMA HPV Assay ([employer] This assay detects E6/E7 viral messenger RNA (mRNA) from 14 high-risk HPV types (16,18,31,33,35,39,45,51,52,56,58,59,66,68). The analytical performance characteristics of this assay have been determined by [facility]. The modifications have not been cleared or approved by the FDA. This assay has been validated pursuant to the CLIA regulations and is used for clinical purposes. Cytologic material (specimen) Cervix uteri structure / Unknown 03/29/2018 11:09 AM EDT 03/29/2018 11:10 AM EDT Narrative [facility] - 04/02/2018 12:58 PM EDT [facility] Testing performed at: NL2, [facility], [address] [facility], [address], [place], [address], Body And Fender Worker: Lasha Ellis [facility] Collection Date/Time: [id number] [facility] Results Received Date/Time: [id number] [facility] Reported Date/Time: postmenopausal Gestational Age (if ): Unknown No LMP recorded. Patient is postmenopausal. us Kaur Rosas MD LAB - NO BLOOD DRAW Final Result [facility] [address] [facility] 3rd FLOOR CLIA #[id number] [place] [address], [place] * HIV 4TH GEN (03/29/2018 10:25 AM EDT) CHIV Nonreactive Nonreactive [facility] Serum specimen (specimen) Blood / Unknown 03/29/2018 10:25 AM EDT 03/29/2018 10:25 AM EDT Narrative [facility] - 03/31/2018 3:37 PM EDT patient is not fasting. us Kaur Rosas MD LAB - BLOOD DRAW Final Re sult [facility] CLIA# [id number] [address] [place] [address], [place] [phone] from Last 3 Months or Most Recently Relevant to Health Maintenance Insurance [employer] NET DENTAL MEDICAID DENTAL [employer] Member Subscriber Plan / Payer (Ef fective 2019-Present) Name:Mario Shah Relation to Subscriber:Self Name:Mario Shah Payer ID:[id number] Type:Indemnity Address: [facility] [address] [place] [address] Care Teams Sec Accountant Relationship Specialty Start Date End Date Barbara Gray MD [address] [place] [id number] PCP - General 04/02/22
--- OUTSIDE RECORDS SUMMARY | 2024-12-25 11:08 | XMS_ITS | Encounter Summary ---
Author Organization [facility] Address [address] [place] [address] Care Team Providers Care Career Services Coordinator Name Role Phone Barbara Gray MD Primary Care Provider + Encounter Details Date Type Department Care Team (Late st Contact Info) Description 11/09/2020 Interim Notes [facility] [address] [place] [address] Conrado Mota PA [address] [place] [address] Visit for screening mammogram (Primary [...] Collected: 11/14/2020 10:38 AM Department of Radiology [facility] ?? Name: ?? Mario Shah : [...] EDUARDO FUNES M.D. ?Date: 11/22/2020 03:51 PM [facility] Amber-Sherrill Entzminger PA IMG MAMMO Fi nal Result documented in this encounter Visit Diagnoses Diagnosis Visit for screening mammogram- Primary Other screening mammogram documented in this encounter Care Teams Career Services Coordinator Relationship Specialty Start Date End Date Barbara Gray MD [address] [place] [address] PCP - General 04/02/22 documented as of this encounter
[2024-12-25 14:30] LABS: MANUAL DIFF FLAG NO
[2024-12-25 14:34] LABS: Basophils Percent Auto 1.1 % (0-2); Eosinophils Absolute Auto 0.1 X10*3/uL (0.0-0.4); Eosinophils Percent Auto 1.7 % (0-4); Hematocrit 39.5 % (37.0-47.0); Hemoglobin 12.4 g/dl (12.0-16.0); Lymphocytes Absolute Auto 1.1 X10*3/uL (1.2-4.9); Lymphocytes Percent Auto 31.6 % (20-40); Mean Corpuscular HGB Conc 31.4 g/dl (31.0-35.0); Mean Corpuscular Volume 89.2 fL (80.0-98.0); Mean Platelet Volume 10.7 fL (9.4-12.3); Monocytes Absolute Auto 0.2 X10*3/uL (0.1-1.2); Monocytes Percent Auto 6.9 % (2-11); Neutrophils Percent Auto 58.7 % (45-73); Platelet Count 281 X10*3/uL (160-400); Red Blood Count 4.43 X10*6/uL (4.20-5.50); Red Cell Distribution Width 14.4 % (11.0-16.0); White Blood Count 3.5 X10*3/uL (4.8-10.8)
[2024-12-25 14:49] LABS: Estimated Average Glucose 117 mg/dL; Hemoglobin A1C 127.2019 umol/L; Hemoglobin A1c % 5.7 % (<6.0); Total Hemoglobin (HGBA1C) 3294.7726 umol/L
[2024-12-25 15:00] LABS: Appearance Urine Cloudy; Color Urine Yellow; Glucose Urine UA Negative (Negative); Leukocyte Esterase Urine Moderate (2+) (Negative); Nitrite Urine Negative (Negative); UMIC TRIGGER UACC YES; Urine Blood Negative (Negative); Urine Ketones Negative (Negative); Urine Protein Trace mg/dL (Neg-Trace)
[2024-12-25 15:01] LABS: Alanine Aminotransferase 21 U/L (0-31); Albumin Level 4.1 g/dL (3.5-5.0); Anion Gap 9 (12-20); Aspartate Amino Transferase 28 U/L (5-31); Bilirubin Total 0.4 mg/dL (0.0-1.0); Blood Urea Nitrogen 12 mg/dL (9-16); Calcium 9.4 mg/dL (8.4-10.2); Carbon Dioxide 28 mmol/L (22-29); Chloride 108 mmol/L (96-108); Cholesterol 215 mg/dL (<200); Estimated Glomerular Filt Rate > 60; Glucose Fasting 77 mg/dL (60-99); HDL Cholesterol 59 mg/dL (>40); LDL Cholesterol Calculated 144 mg/dL (<100); Potassium 4.2 mmol/L (3.3-5.1); Sodium 141 mmol/L (135-145); Total Protein 7.2 g/dL (6.5-8.0); Triglycerides 63 mg/dL (<150)
[2024-12-25 15:09] LABS: Bacteria Urine Trace (None Seen); Calcium Oxalate Crystals Urine Present; Hyaline Casts Urine 0-2 /LPF (0-2); RBC Urine 0-2 /HPF (0-2); Squamous Epithelial Cell Urine 0-2 /HPF (0-2); UACC Culture Trigger YES
[2024-12-25 15:10] LABS: Creatinine Urine 132.99 mg/dL; Microalbum/Creatinine Ratio Ur 34.5 ug/mg cr (<30)
[2024-12-25 15:35] LABS: TSH reflex Free T4 1.81 uIU/mL (0.32-4.0)
[2024-12-25 19:08] LABS: Alkaline Phosphatase 86 U/L (39-117)
== END 2024-12-25 10:18 | disposition home or self-care (01) ==
LOC: HO.WFDLDS 10:17
PROVIDERS: Visit Provider Family Medicine
DX: Z00.00 Encounter for general adult medical examination without abnormal findings (principal); I10 Essential (primary) hypertension; R73.01 Impaired fasting glucose
CPT/HCPCS: 36415; 80053; 80061; 81001; 81003; 82043; 82570; 83036; 84443; 85025; 87086

== ENCOUNTER 2025-05-07 10:35 | Outpatient (AMB) | payer OTHER, SELFPAY ==
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
--- OUTSIDE RECORDS SUMMARY | 2025-05-07 11:12 | XMS_ITS | Encounter Summary ---
Author Organization [facility] Address [address] [facility] [address] [place] [address] Phone Care Team Providers Care Dental Insurance Coordinator Name Role Phone Stephen Bueno MD Primary Care Provider [phone] Stephen Bueno MD Unavailable [phone] Stephen Bueno MD Unavailable [phone] Blas Evans MD, PhD Primary Care Prov ider Encounter Details Date Type Department Care Team (Latest Contact Info) Description 04/05/2016 Transcribe Orders [facility] [address] [address] Janet [email or web address] Visit for screening mammogram (Primary Dx) Social History Tobacco Use Types Packs/Day Years Used Date Smoking Tobacco: Never Smokeless Tobacco: Never Alcohol Use Standard Drinks/Week Comments No 0 (1 standard drink = 0.6 oz pur e alcohol) Comments Unknown Sex and Gender Information Value Date Recorded Sex Assigned at Female 09/16/2017 9:35 AM EST Legal Sex Female 11:19 AM EDT Gender Identity Female Sexual Orientation Straight documented as of this encounter Plan of Treatment Not on file documented as of this encounter Visit Diagnoses Diagnosis Visit for screening mammogram- Primary documented in this encounter Care Teams Dental Insurance Coordinator Relationship Specialty Start Date End Date Stephen Bueno MD [address] [place] [phone] PCP - General Internal Medicine 02/03/15 01/17/18 Blas Evans MD, PhD [address] [place] [address] [email or web address] PCP - General Internal Medicine 01/18/18 05/29/21 Stephen Bueno MD [address] [place] [phone] Insurance Assigned Provider 04/09/15 12/07/17 Stephen Bueno MD [address] [place] [phone] Partners Attributed Provider 11/13/15 02/15/18 documented as of this encounter Additional Source Comments The information contained in this document represents components of the legal health record. It is not the complete legal health record.[facility]
--- OUTSIDE RECORDS SUMMARY | 2025-05-07 11:12 | XMS_ITS | Encounter Summary ---
Author Organization [facility] Address [address] [facility] [address] [place] [address] Phone Care Team Providers Care Image Scientist Name Role Phone Stephen Bueno MD Primary Care Provider [phone] Stephen Bueno MD Unavailable [phone] Stephen Bueno MD Unavailable [phone] Blas Evans MD, PhD Primary Care Prov ider Encounter Details Date Type Department Care Team (Latest Contact Info) Description 02/12/2015 Transcribe Orders [facility] [address] [address] Jessie Sotomayor, RT [email or web address] Screening breast examination (Primary Dx) Social History Tobacco Use Types Packs/Day Years Used Date Smoking Tobacco: Never Assessed Comments Unknown Sex and Gender Information Value Date Recorded Sex Assigned at Female 09/16/2017 9:35 AM EST Legal Sex Female 11:19 AM EDT Gender Identity Female Sexual Orientation Straight documented as of this encounter Plan of Treatment Not on file documented as of this encounter Visit Diagnoses Diagnosis Screening breast examination- Primary Other screening breast examination documented in this encounter Care Teams Image Scientist Relationship Specialty Start Date End Date Stephen Bueno MD [address] [place] [phone] PCP - General Internal Medicine 02/03/15 01/17/18 Blas Evans MD, PhD [facility] [place] [address] [email or web address] PCP - General Internal Medicine 01/18/18 05/29/21 Stephen Bueno MD [address] [place] [phone] Insurance Assigned Provider 04/09/15 12/07/17 Stephen Bueno MD [address] [place] [address] Partners Attributed Provider 11/13/15 02/15/18 documented as of this encounter Additional Source Comments The information contained in this document represents components of the legal health record. It is not the complete legal health record.[facility]
--- OUTSIDE RECORDS SUMMARY | 2025-05-07 11:12 | XMS_ITS | Clinical Summary ---
Author Organization [facility] Address [address] [place] [address] Care Team Providers Care Technical Training Manager Name Role Phone Barbara Gray MD [...] # for call back by Dallin BAHENA 19 Team in 2 to 5 days. Pt to self quarantine pending COVID 19 lab results Handout reviewed and given to pt -Call or rtc in 3-5 days or sooner if symptoms worsen or any concerns. 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 [...] Administration Dates Next Due HEP B, PED/ADOL (EOTSULA-J-JXZY/RECOMBIVAX-PEDS) 01/08/2022,12/11/2021 Hep B, Unspecified 09/17/2011,04/03/2011, 011 INFLUENZA, [...] 89 01/08/2022 3:26 PM EDT Temperature 36.6 C (97.9 F) 01/08/2022 3:26 PM EDT Respiratory Rate 19 01/08/2022 3:26 PM EDT [...] 2012 Fecal DNA 2012 Flexible Sigmoidoscopy 2012 Imm-Pneumococcal 50+ (1 of 1 - PCV) 2017 Imm-Zoster, Recombinant (1 of 2) 2017 Pap Smear 03/29/2021 03/29/2018, 03/0 12/2012, 10/23/2011 Annual Wellness (Adult): Indicated (All Coverage) 11/10/2022 11/10/2021, 10/17/2020, 09/21/2019, Additional history exists Diabetes Screening 11/10/2022 11/10/2021, 0 10/17/2020, 10/17/2020, Additional history exists Breast Cancer Screening (Mammogram) 11/14/2022 11/14/2020, 11/14/2020 Colorectal Cancer Screening 11/16/2022 FIT/gFOBT 11/16/2022 11/16/2021, 02/0 04/2021, 09/25/2019 Hypertension Screening (#1) 01/08/2023 Cervical Cancer Screening 03/29/2023 Pap + HPV 03/29/2023 03/29/2018, 11/10/2012 [id number] ( season) 2024 021, 05/10/2021 Alcohol and Drug Screen 09/09/2024 10/17/19 21, 09/21/2019, 03/29/2018 Depression Annual Screen 09/09/2024 Imm-Influenza (#1) 2025 06/04/2016, 1 , 06/11/2013, Additional history exists Lipid Screening 11/10/2026 11/10/2021, 04/2021, 09/21/2019, Additional [...] Recently Relevant to Health Maintenance Results * FIT (Occult Blood) (11/16/2021 11:46 AM EST) FIT Negative Negative [facility] Stool Stool specimen / Unknown 11/16/2021 11:46 AM EST 11/16/2021 11:04 AM EST us Komal Cowan MD LAB BODY FLUIDS AND STOOLS AM BULATORY Final Result [facility] CLIA# [id number] [address] [place] [address], * (ABNORMAL) HB A1C (11/10/2021 5:27 PM EST) HEMOGLOBIN A1C 5.7(H) <5.7 % of total Hgb [facility] Comment: For someone without known diabetes, [...] 11/10/2021 5:27 PM EST Narrative [facility] - 11/11/2021 11:32 AM EST patient is not fasting. [facility] Testing performed at: [facility], [facility], [address], [address], [place], [address], After School Caregiver: Lasha Ellis [facility] Collection Date/Time: [id number] [facility] Results Received Date/Time: [id number] [facility] Reported Date/Time: [id number] us Komal Cowan MD LAB - BLOOD DRAW Final Result Performing Organization Address City/[facility]/ZIP Co de Phone Number [facility] [address] CLIA #[id number] [place] [address], * (ABNORMAL) LIPID PANEL (11/10/2021 5:27 PM EST) CHOLESTEROL, TOTAL 213(H) <200 mg/dL [facility] HDL CHOLESTEROL 53 > OR = 50 mg/dL [facility]) TRIGLYCERIDES 82 <150 mg/dL [facility]) LDL-CHOLESTEROL 141(H) mg/dL (calc) [facility] Comment: Reference range: <100 Desirable range <100 mg/dL for primary prevention; <70 mg/dL for patients with CHD or diabetic patients with > or = 2 CHD risk factors. LDL-C is now calculated using the Rowdy-Denise calculation, which is a validated novel method providing better accuracy than the Friedewald equation in the estimation of LDL-C. Rowdy SS et al. RINA. 2013;310(19): 3932-4634 (http://education.Tastemade/faq/JSV232) CHOL/HDLC RATIO 4.0 <5.0 (calc) [facility] [...] 11/10/2021 5:27 PM EST Narrative [facility] - 11/11/2021 11:32 AM EST patient is not fasting. [facility] Testing performed at: 2, [facility], [address] [place] [address], [address], [place], [address], After School Caregiver: Lasha Ellis [facility] Collection Date/Time: [id number] [facility] Results Received Date/Time: [id number] [facility] Reported Date/Time: [id number] us Komal Cowan MD LAB - BLOOD DRAW Final Result [facility] [address] CLIA #[id number] [place] [address], [place] * SCREENING MAMMOGRAPHY BI 2-VIEW BREAST INC CAD (11/14/2020) MAMMOGRAM NEGATIVE NEGATIVE BI-RADS ASSESSMENT 1 - Negative: means that there is no significant or noticeable abnormality to report. BI-RADS FOLLOW-UP 1 - Routine Screening Anatomical Region Laterality Modality Mammography 11/14/2020 Narrative 11/14/2020 Collected: 11/14/2020 10:38 AM Department of Radiology [facility] Name: Mario Shah : 1965 Sex: Female EXAMINATION: DIGITAL BILATERAL TOMOSYNTHESIS SCREENING MAMMOGRAPHY INDICATION: [...] study and agree with the dictated report. Dictated By: DALIA RÍOS DO Date: 11/22/2020 03:51 PM Electronically Signed By: EDUARDO FUNES M.D. Date: 11/22/2020 03:51 PM [facility] us Conrado BONILLA IMG MAMMO Fi nal Result * Hepatitis C Antibody (10/17/2020 8:14 PM EST) HEPATITIS C AB Nonreactive Nonreactive [facility] Serum Blood / Unknown 10/17/2020 8 :14 PM EST 10/17/2020 8:14 PM EST Narrative [facility] - 10/18/2020 4:19 PM EST patient is not fasting. us Conrado BONILLA LAB - BLOOD DRAW F inal Result [facility] CLIA# [id number] [address] [place] [address], * Thinprep PAP w/ HPV (03/29/2018 11:09 AM EDT) CLINICAL INFORMATION SEE NOTE [facility] Comment:Normal exam LMP SEE NOTE [facility] Comment:NO LMP RECORDED PREV. PAP 5 [facility]) PREV. BX SEE NOTE [facility] Comment:NG - NOT GIVEN SOURCE Cervix [facility]) STATEMENT OF ADEQUACY SEE NOTE [facility] Comment: Satisfactory for evaluation. Endocervical/transformation zone component present. INTERPRETATION/RESU LT SEE NOTE [facility] Comment:Negative for intraep ithelial lesion or malignancy. INFECTION SEE NOTE [facility] Comment: Shift in vaginal alfonzo suggestive of bacterial vaginosis. COMMENT SEE NOTE [facility] Comment: This Pap test has been evaluated with computer assisted technology. SCIENCE INTERN SEE NOTE [facility] Comment: [place], CT(ASCP) CT screening location: [place] [address] COMMENT SEE NOTE [facility] Comment: EXPLANATORY NOTE: The Pap is [...] E6/E7 Not Detected Not Detected [facility] Comment: This test was performed using the APTIMA HPV Assay ([employer] This assay detects E6/E7 viral messenger RNA (mRNA) from 14 high-risk HPV types (16,18,31,33,35,39,45,51,52,56,58,59,66,68). The analytical performance characteristics of this assay have been determined by [facility]. The modifications have not been cleared or approved by the FDA. This assay has been validated pursuant to the CLIA regulations and is used for clinical purposes. Cytologic material (specimen) Cervix uteri structure / Unknown 03/29/2018 11:09 AM EDT 03/29/2018 11:10 AM EDT Narrative [facility] - 04/02/2018 12:58 PM EDT [facility] Testing performed at: 2, [facility], [address] [place] [address], [address], [place], [address], After School Caregiver: Lasha Ellis [facility] Collection Date/Time: [id number] [facility] Results Received Date/Time: [facility] Reported Date/Time: postmenopausal Gestational Age (if ): Unknown No LMP recorded. Patient is postmenopausal. us Kaur Rosas MD LAB - PATHOLOGY AND CYTOL OGY AMBULATORY Final Result [facility] [address] [facility] 3rd FLOOR CLIA #[id number] [place] [address], [place] * HIV, 4th Generation (03/29/2018 10:25 AM EDT) CHIV Nonreactive Nonreactive [facility] Serum specimen (specimen) Blood / Unknown 03/29/2018 10:25 AM EDT 03/29/2018 10:25 AM EDT Narrative [facility] - 03/31/2018 3:37 PM EDT patient is not fasting. us Kaur Rosas MD LAB - BLOOD DRAW Final Re sult [facility] CLIA# [id number] [address] [place] [address], [place] [phone] from Last 3 Months or Most Recently Relevant to Health Maintenance Insurance HEALTH SAFETY [place] DENTAL [place] DENTAL [facility] SAFCell PLAN COM Member Subscriber Plan / Payer (Ef fective 2019-Present) Name:Mario Shah Relation to Subscriber:Self Name:Mario Shah Payer ID:[id number] Type:Indemnity Address: [facility] [address] [place] [address] Care Teams Technical Training Manager Relationship Specialty Start Date End Date Barbara Gray MD [address] [place] [phone] PCP - General 04/02/22
--- OUTSIDE RECORDS SUMMARY | 2025-05-07 11:12 | XMS_ITS | Encounter Summary ---
Author Organization [facility] Address [address] [place] [address] [place] [phone] Phone Care Team Providers Care Newborn Photographer Name Role Phone Stephen Bueno MD Primary Care Provider [phone] Stephen Bueno MD Unavailable [phone] Stephen Bueno MD Unavailable [phone] Blas Evans MD, PhD Primary Care Prov ider Encounter Details Date Type Department Care Team (Latest Contact Info) Description 02/16/2015 Transcribe Orders [facility] Radiology [address] [place] [address] Janet [email or web address] Abnormal mammogram (Primary Dx) Social History Tobacco Use [...] as of this encounter Visit Diagnoses Diagnosis Abnormal mammogram- Primary Abnormal mammogram, unspecified documented in this encounter Care Teams Newborn Photographer Relationship Specialty Start Date End Date Stephen Bueno MD [address] [place] [phone] PCP - General Internal Medicine 02/03/15 01/17/18 Blas Evans MD, PhD [address] [place] [phone] [email or web address] PCP - General Internal Medicine 01/18/18 05/29/21 Stephen Bueno MD [address] [place] [phone] Insurance Assigned Provider 04/09/15 12/07/17 Stephen Bueno MD [address] [place] [address] [employer] Attributed Provider 11/13/15 02/15/18 documented as of this encounter Additional Source Comments The information contained in this document represents components of the legal health record. It is not the complete legal health record.[facility]
--- OUTSIDE RECORDS SUMMARY | 2025-05-07 11:12 | XMS_ITS | Encounter Summary ---
Author Organization [facility] Address [address] [place] [address] Care Team Providers Care Pulper Operator Name Role Phone Barbara Gray MD Primary Care Provider + Encounter Details Date Type Department Care Team (Late st Contact Info) Description 11/09/2020 Interim Notes [facility] Radiology Services [address] [place] [address] Conrado Mota PA [address] [place] [address] Social History Tobacco Use Types Packs/Day Years [...] Collected: 11/14/2020 10:38 AM Department of Radiology [facility] Name: Mario Shah : 1965 Sex: Female [...] Date: 11/22/2020 03:51 PM Electronically Signed By: DEUARDO FUNES M.D. Date: 11/22/2020 03:51 PM [facility] us Conrado BONILLA IMG MAMMO Fi nal Result documented in this encounter Visit Diagnoses Diagnosis Visit for screening mammogram- Primary Other screening mammogram documented in this encounter Care Teams Pulper Operator Relationship Specialty Start Date End Date Barbara Gray MD [address] [place] [phone] PCP - General 04/02/22 documented as of this encounter
--- NOTE | 2025-05-07 11:21 | MHC.OFFWIV ---
Intake Vital Signs 05/07/25 11:24 Height 5 ft 2 in Weight 172 lb BMI 31.5 BP 118/82 Blood Pressure Location Lt brachial Position Sitting Pulse 83 Pulse Source Pulse Oximeter Temp 98.0 F Temp Source Oral Pulse Oximetry (%) 99 Oxygen Delivery Method Room Air Intake Visit Reasons: EP abdominal pain? Intake Note: pt presents with right mid back pain radiating around to the right mid abdomen and abdominal. states sometimes pain radiates down right thigh and that at the beginning of these s/s she had pressure with voiding that has resolved. denies constipation/diarrhea/urinary tract issues. s/s x1 mo Patient Tobacco Use Status: Never used Tobacco Allergies No Known Allergies Allergy (Verified 05/07/25 11:30) Do you need a note to return to daycare/school/sports/work: No HPI HPI Comments History of Present Illness Details History of Present Illness - The patient is a 59-year-old female presenting with abdominal pain, bloating, and excessive gas. - Reports left upper quadrant abdominal pain when not eating breakfast early enough, starting after returning from [facility] on April 10. - Experiences right lower back pain which radiates around to her abdomen associated with bloating and sharp pains which move around in her abdomen. - Denies hx of kidney stones - Denies bloody or black bowel moements, urinary changes, denies nausea, vomiting, diarrhea, or fever or excessive flatulance or belching. - Observed blood on toilet paper, likely due to hemorrhoids. - denies recent heavy lifting or new/abnormal movements, new workouts. - Eating and drinking normally Physical Exam General: Cooperative, healthy appearing, comfortable, no acute distress and well developed Orientation: Patient oriented x3 Limitations: No limitations Head: Normal to inspection Ears: Hearing grossly normal bilaterally Nose: Normal External nose present Face and sinus: Normal facial exam Eyes: Appearance normal, both eyes and all related structures Neck: Normal visual inspection and Yes full ROM Respiratory: Normal respiratory effort and able to speak in complete sentences. Skin: No rashes or lesions noted Neuro: Patient oriented x3 Extremities: Normal to inspection Back: negative CVA bilaterally, no TTP thoracic spine, slight TTP right sided thoracic area PFSH Medical History Gastroenteritis [place] of foot GERD without esophagitis Surgical History No pertinent past surgical history Social History Household Members: Children Housing: House Are you a primary healthcare economics manager to a significant other at home: No Do you presently have visiting nurse or other home services: No 75 years or older and lives alone: No Alcohol intake: never Patient Tobacco Use Status: Never used Tobacco e-Cigarette/Vaping Use: Never Used service: No Current occupational status: employed Current occupation: [employer] Cognitive needs: No Hearing needs: No Vision needs: Yes (wears glasses, needs eye doctor) Review of Systems Const All systems reviewed & are unremarkable except as noted in HPI and below Physical Exam Vital Signs: Last Vital Signs Temp 98.0 F 05/07/25 11:24 Pulse 83 05/07/25 11:24 BP 118/82 05/07/25 11:24 Pulse Ox 99 05/07/25 11:24 Oxygen Delivery Method Room Air 05/07/25 11:24 BMI result Body Mass Index 31.5 Assessment & Plan Assessment & Plan (1) Abdominal bloating: Code(s): R14.0 - Abdominal distension (gaseous) Plan: Plan Patient was informed and verbally consented to the use of an ambient scribe for clinic note documentation during this visit. Abdominal Bloating And Excessive Gas - VSS, pt well appearing and PE unremarkable. - H. pylori breath test planned to rule out infection as a cause as recent trip to [facility] and symptoms started when she returned. Patient ate within the last hour so she will return in the AM to do the breath test. - Follow up with PCP if negative testing (2) Acute right-sided thoracic back pain: Code(s): M54.6 - Pain in thoracic spine Plan: - Musculoskeletal origin suspected, advised to monitor for any changes or exacerbations. Orders: Orders H Pylori Breath Test Today R14.0 - Abdominal distension (gaseous) Coding Level of Care Code Est Pt Level 3 (16322) Diagnoses Abdominal bloating R14.0 Acute right-sided thoracic back pain M54.6
[2025-05-07 11:24] VITALS: BP 118/82; PULSE 83; TEMP 36.7; O2SAT 99; BMI 31.5
== END 2025-05-07 11:58 | disposition home or self-care (01) ==
PROVIDERS: PCP Family Medicine; Visit Provider Physician Assistant
DX: R14.0 Abdominal distension (gaseous) (principal); M54.6 Pain in thoracic spine

== ENCOUNTER 2025-05-08 10:35 | Outpatient (REF) | payer OTHER, SELFPAY ==
--- OUTSIDE RECORDS SUMMARY | 2025-05-08 14:06 | XMS_ITS | Encounter Summary ---
Author Organization [facility] Address [address] [facility] [address] [place] [address] Phone Care Team Providers Care Cylinder Grinder Name Role Phone Stephen Bueno MD Primary Care Provider [phone] Stephen Bueno MD Unavailable [phone] Stephen Bueno MD Unavailable [phone] Blas Evans MD, PhD Primary Care Prov ider Encounter Details Date Type Department Care Team (Latest Contact Info) Description 04/05/2016 Transcribe Orders [facility] [address] [address] Janet [email or web address] Visit for screening mammogram (Primary Dx) Social [...] Primary documented in this encounter Care Teams Cylinder Grinder Relationship Specialty Start Date End Date Stephen Bueno MD [address] [place] [phone] PCP - General Internal Medicine 02/03/15 01/17/18 Blas Evans MD, PhD [address] [place] [phone] [email or web address] PCP - General Internal Medicine 01/18/18 05/29/21 Stephen Bueno MD [address] [place] [address] Insurance Assigned Provider 04/09/15 12/07/17 Stephen Bueno MD [address] [place] [address] [employer] Attributed Provider 11/13/15 02/15/18 documented as of this encounter Additional Source Comments The information contained in this document represents components of the legal health record. It is not the complete legal health record.[facility]
--- OUTSIDE RECORDS SUMMARY | 2025-05-08 14:06 | XMS_ITS | Clinical Summary ---
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 [...] Administration Dates Next Due HEP B, PED/ADOL ([id number]-S-YLZH/RECOMBIVAX-PEDS) 01/08/2022,12/11/2021 Hep B, Unspecified 09/17/2011,04/03/2011, 011 INFLUENZA, [...] 03/29/2023 Pap + HPV 03/29/2023 03/29/2018, 11/10/2012 Off-YJRDE-45 ( season) 2024 021, 05/10/2021 Alcohol and [...] 11:46 AM EST) FIT Negative Negative [facility] Stool Stool specimen / Unknown 11/16/2021 11:46 AM EST 11/16/2021 11:04 AM EST us Komal Cowan MD LAB BODY FLUIDS AND STOOLS AM BULATORY Final Result [facility] CLIA# [id number] [address] [place] [address], * (ABNORMAL) HB A1C (11/10/2021 5:27 PM EST) HEMOGLOBIN A1C 5.7(H) <5.7 % of total Hgb [facility] Comment: For someone without known diabetes, [...] 11/10/2021 5:27 PM EST Narrative [facility] - 11/11/2021 11:32 AM EST patient is not fasting. [facility] performed at: [facility], [address], [address], [place], [address], Public Health Nurse: Lasha Ellis [facility] Collection Date/Time: [id number] [facility] Results Received Date/Time: [id number] [facility] Reported Date/Time: [id number] us Komal Cowan MD LAB - BLOOD DRAW Final Result Performing Organization Address City/[facility]/ZIP Co de Phone Number [facility] [address] CLIA #[id number] [place] [address], * (ABNORMAL) LIPID PANEL (11/10/2021 5:27 PM [...] LDL-C. Rowdy SS et al. RINA. 2013;310(19): 4338-7809 (http://education.[employer]/faq/ELX298) CHOL/HDLC RATIO 4.0 <5.0 (calc) [facility] [...] 11/10/2021 5:27 PM EST Narrative [facility]) - 11/11/2021 11:32 AM EST patient is not fasting. [facility] Testing performed at: 2, [facility], [address] [place] [address], [address], [place], [address], Public Health Nurse: Lasha Ellis [facility] Collection Date/Time: [id number] [facility] Results Received Date/Time: [id number] [facility] Reported Date/Time: [id number] us Komal Cowan MD LAB - BLOOD DRAW Final Result [facility] [address] CLIA #[id number] [place] [address], [place] * SCREENING MAMMOGRAPHY BI 2-VIEW BREAST INC CAD (11/14/2020) MAMMOGRAM NEGATIVE NEGATIVE BI-RADS ASSESSMENT 1 - Negative: means that there is no significant or noticeable abnormality to report. BI-RADS FOLLOW-UP 1 - Routine Screening Anatomical Region Laterality Modality Mammography 11/14/2020 Narrative 11/14/2020 Collected: 11/14/2020 10:38 AM Department of Radiology [facility] Name: Mario Shah : 1965 Sex: [...] EDUARDO FUNES M.D. Date: 11/22/2020 03:51 PM [facility] us Conrado BONILLA IMG MAMMO Fi nal Result * Hepatitis C Antibody (10/17/2020 8:14 PM EST) HEPATITIS C AB Nonreactive Nonreactive [facility] Serum Blood / Unknown 10/17/2020 8 :14 PM EST 10/17/2020 8:14 PM EST Narrative [facility] - 10/18/2020 4:19 PM EST patient is not fasting. us Conrado BONILLA LAB - BLOOD DRAW F inal Result [facility] CLIA# [id number] [address] [place] [address], * Thinprep PAP w/ HPV (03/29/2018 11:09 AM EDT) CLINICAL INFORMATION SEE NOTE [facility] Comment:Normal exam LMP SEE NOTE [facility] Comment:NO LMP RECORDED PREV. PAP 5 [facility] PREV. BX SEE NOTE [facility] Comment:NG - NOT GIVEN SOURCE Cervix [facility]) STATEMENT OF ADEQUACY SEE NOTE [facility] Comment: Satisfactory for evaluation. Endocervical/transformation zone component present. INTERPRETATION/RESU LT SEE NOTE [facility] Comment:Negative for intraep ithelial lesion or malignancy. INFECTION SEE NOTE [facility] Comment: Shift in vaginal alfonzo suggestive of bacterial vaginosis. COMMENT SEE NOTE [facility] Comment: This Pap test has been evaluated with computer assisted technology. PARAPROFESSIONAL AIDE SEE NOTE [facility] Comment: [place], CT(ASCP) CT screening location: [place] [address] COMMENT SEE NOTE [facility] Comment: EXPLANATORY NOTE: The Pap is [...] E6/E7 Not Detected Not Detected [facility] Comment: This test was performed using the APTIMA HPV Assay ([employer] This assay detects E6/E7 viral messenger RNA (mRNA) from 14 high-risk HPV types (16,18,31,33,35,39,45,51,52,56,58,59,66,68). The analytical performance characteristics of this assay have been determined by [facility]. The modifications have not been cleared or approved by the FDA. This assay has been validated pursuant to the CLIA regulations and is used for clinical purposes. Cytologic material (specimen) Cervix uteri structure / Unknown 03/29/2018 11:09 AM EDT 03/29/2018 11:10 AM EDT Narrative [facility] - 04/02/2018 12:58 PM EDT [facility] performed at: 2, [facility], [address] [place] [address], [address], [place], [address], Public Health Nurse: Lasha Ellis [facility] Collection Date/Time: [id number] [facility] Results Received Date/Time: [facility] Reported Date/Time: postmenopausal Gestational Age (if ): Unknown No LMP recorded. Patient is postmenopausal. us Kaur Rosas MD LAB - PATHOLOGY AND CYTOL OGY AMBULATORY Final Result [facility] [address] [facility] 3rd FLOOR CLIA #[id number] [place] [address], [place] * HIV, 4th Generation (03/29/2018 10:25 AM EDT) CHIV Nonreactive Nonreactive [facility] Serum specimen (specimen) Blood / Unknown 03/29/2018 10:25 AM EDT 03/29/2018 10:25 AM EDT Narrative [facility] - 03/31/2018 3:37 PM EDT patient is not fasting. us Kaur Rosas MD LAB - BLOOD DRAW Final Re sult [facility] CLIA# [id number] [address] [place] [address], [place] [phone] from Last 3 Months or Most Recently Relevant to Health Maintenance Insurance HEALTH SAFETY [place] DENTAL [place] MED[place] DENTAL [facility] mDialog PLAN COM Member Subscriber Plan / Payer (Ef fective 2019-Present) Name:Mario Shah Relation to Subscriber:Self Name:Mario Shah Payer ID:[id number] Type:Indemnity Address: [facility] [address] [place] [address] Care Teams Associate Professor Of Chemistry Relationship Specialty Start Date End Date Barbara Gray MD [address] [place] [phone] PCP - General 04/02/22
--- OUTSIDE RECORDS SUMMARY | 2025-05-08 14:06 | XMS_ITS | Encounter Summary ---
Author Organization [facility] Replaced By [facility] Address [address] [place] [address] [place] [address] Phone Care Team Providers Care Data Integration Developer Name Role Phone Stephen Bueno MD Primary Care Provider [phone] Stephen Bueno MD Unavailable [phone] Stephen Bueno MD Unavailable [phone] Blas Evans MD, PhD Primary Care Prov ider Encounter Details Date Type Department Care Team (Latest Contact Info) Description 02/16/2015 Transcribe Orders [facility] Radiology [address] [place] [address] Janet [email or web address] Abnormal mammogram (Primary Dx) Social History Tobacco [...] unspecified documented in this encounter Care Teams Data Integration Developer Relationship Specialty Start Date End Date Stephen Bueno MD [address] [place] [address] PCP - General Internal Medicine 02/03/15 01/17/18 Blas Evans MD, PhD [address] [place] [id number] [email or web address] PCP - General Internal Medicine 01/18/18 05/29/21 Stephen Bueno MD [address] [place] [address] Insurance Assigned Provider 04/09/15 12/07/17 Stephen Bueno MD [address] [place] [address] Partners Attributed Provider 11/13/15 02/15/18 documented as of this encounter Additional Source Comments The information contained in this document represents components of the legal health record. It is not the complete legal health record.[facility]
--- OUTSIDE RECORDS SUMMARY | 2025-05-08 14:06 | XMS_ITS | Encounter Summary ---
Author Organization [facility] Address [address] [place] [address] Care Team Providers Care Mint Machine Operator Name Role Phone Barbara Gray MD Primary Care Provider + Encounter Details Date Type Department Care Team (Late st Contact Info) Description 11/09/2020 Interim Notes [facility] Radiology Services [address] [place] [address] Conrado Mota PA [address] [place] [address] Social History Tobacco Use Types [...] Collected: 11/14/2020 10:38 AM Department of Radiology [facility] Name: Mario Shah : 1965 Sex: [...] EDUARDO FUNES M.D. Date: 11/22/2020 03:51 PM [facility] us Conrado BONILLA IMG MAMMO Fi nal Result documented in this encounter Visit Diagnoses Diagnosis Visit for screening mammogram- Primary Other screening mammogram documented in this encounter Care Teams Mint Machine Operator Relationship Specialty Start Date End Date Barbara Gray MD [address] [place] [phone] PCP - General 04/02/22 documented as of this encounter
--- OUTSIDE RECORDS SUMMARY | 2025-05-08 14:06 | XMS_ITS | Clinical Summary ---
Author Organization [facility] Address [address] [facility] [address] [place] [address] Phone Care Team Providers Care Police District Switchboard Operator Name Role Phone Unavailable Primary Care Provider [...] per pt, and last pap smear in [facility] circa 5 yrs ago. PM prevention of [...] EDT) HDL 65(H) 40 - 60 mg/dL [facility] CHOLESTEROL 184 0 - 199 mg/dL [facility] Comment:DESIRABLE: <200 TRIGLYCERIDES 57 40 - 150 mg/dL [facility] LDL 108 0 - 129 mg/dL [facility] Comment: < 100 Optimal, if known or suspected vascular disease is present < 130 Near optimal, if risk factors for vascular disease are present Guidelines set by National Cholesterol Education Program (Adult Treatment Panel III) CARDIAC RISK RATIO 2.8 0.0 - 4.0 [facility] Blood 12/21/2016 9:13 AM EDT 12/21/2016 1:19 PM EDT us Stephen Bueno MD LAB BLOOD ORDERABLES Final Re sult [facility] [address] [place] [id number] * Mammogram Screening With Tomosynthesis With CAD [...] (11/17/2015 12:00 AM EST) 11/17/2015 11/18/2015 Narrative [facility] - 11/22/2015 10:27 AM EDT CASE: [id number] PATIENT: MARIO SHAH Specimen(s) Received THINPREP PAP TEST, CERVICAL [facility] Department of Pathology [address] [place] [address] FINAL DIAGNOSIS SPECIMEN ADEQUACY: Satisfactory for evaluation; [...] Bueno MD CYTOLOGY [place] [address] * Hepatitis C antibody, qualitative (07/05/2015 4:53 PM EDT) HCV ANTIBODY Negative Negative [facility] 07/05/2015 4:53 PM EDT 07/05/2015 6:55 PM EDT us Stephen Bueno MD LAB BLOOD ORDERABLES Final Re sult [facility] [address] [place] [address] from Last 3 Months or Most Recently [...] is not the complete legal health record.[facility]
--- OUTSIDE RECORDS SUMMARY | 2025-05-08 14:06 | XMS_ITS | Encounter Summary ---
Author Organization [facility] Address [address] [facility] [address] [place] [address] Phone Care Team Providers Care Trapper Animal Name Role Phone Stephen Bueno MD Primary Care Provider [phone] Stephen Bueno MD Unavailable [phone] Stephen Bueno MD Unavailable [phone] Blas Evans MD, PhD Primary Care Prov ider Encounter Details Date Type Department Care Team (Latest Contact Info) Description 02/12/2015 Transcribe Orders [facility] [address] [address] Jessie Sotomayor, RT [email or web address] Screening breast examination (Primary Dx) Social History [...] examination documented in this encounter Care Teams Trapper Animal Relationship Specialty Start Date End Date Stephen Bueno MD [address] [place] [address] PCP - General Internal Medicine 02/03/15 01/17/18 Blas Evans MD, PhD [facility] [place] [address] [email or web address] PCP - General Internal Medicine 01/18/18 05/29/21 Stephen Bueno MD [address] [place] [address] Insurance Assigned Provider 04/09/15 12/07/17 Stephen Bueno MD [address] [place] [address] Partners Attributed Provider 11/13/15 02/15/18 documented as of this encounter Additional Source Comments The information contained in this document represents components of the legal health record. It is not the complete legal health record.[facility]
== END 2025-05-08 10:36 | disposition home or self-care (01) ==
LOC: HO.LNP 10:35
PROVIDERS: PCP Family Medicine; Visit Provider Physician Assistant
DX: R14.0 Abdominal distension (gaseous) (principal); M54.6 Pain in thoracic spine
CPT/HCPCS: 83013

== ENCOUNTER 2025-05-31 12:00 | Outpatient (AMB) | payer OTHER, SELFPAY ==
--- NOTE | 2025-05-31 12:04 | MHC.PC.OV ---
Vital Signs 05/31/25 12:09 Height 5 ft 2 in Weight 170 lb 2 oz BMI 31.1 BP 118/72 Blood Pressure Location Rt brachial Position Sitting Respiration 14 Pulse 75 Pulse Source Pulse Oximeter Temp 97.5 F Temp Source Temporal Artery Scan Pulse Oximetry (%) 98 Oxygen Delivery Method Room Air Intake Visit Reasons: Stomach discomfort and pain persist. Intake Note: Mario presents in the office today for stomach discomfort and persistent pain. Lower back pain. Allergies No Known Allergies Allergy (Verified 05/31/25 12:08) Tobacco use date assessed: 05/31/25 Dental Screening Dental Screen Date: 05/31/25 Did you have a dental visit in the last 12 months?: Yes Did you have a dental problem in the last 6 months where you did not have access to dental care?: No Was dental information given to patient?: Patient has dentist HPI Stomach discomfort and pain persist. HPI Details 59 y/o female presents today with complaints of abd. pain. Also reports low back pain. Hx of GERD, acid reflux. [facility] Gastroenteritis [place] of foot GERD without esophagitis Surgical History No pertinent past surgical history Social History (Updated 05/31/25 @ 12:08 by Delfina Ness [facility]) Household Members: Children Housing: House Are you a primary health care analyst to a significant other at home: No Do you presently have visiting nurse or other home services: No 75 years or older and lives alone: No Alcohol intake: never Patient Tobacco Use Status: Never used Tobacco e-Cigarette/Vaping Use: Never Used Second Hand Smoke Exposure: No Use of substances other than those prescribed or required for medical reasons: No service: No Current occupational status: employed Current occupation: [employer] Cognitive needs: No Hearing needs: No Vision needs: Yes (wears glasses, needs eye doctor) Questionnaire PHQ-9 Over the last 2 weeks, how often have you been bothered by any of the following problems? 1. Little interest or pleasure in doing things: not at all 2. Feeling down, depressed, or hopeless: not at all 3. Trouble falling or staying asleep, or sleeping too much: not at all 4. Feeling tired or having little energy: not at all 5. Poor appetite or overeating: not at all 6. Feeling bad about yourself - or that you are a failure or have let yourself or your family down: not at all 7. Trouble concentrating on things, such as reading the newspaper or watching television: not at all 8. Moving or speaking so slowly that other people could have noticed. Or the opposite - being so fidgety or restless that you have been moving around a lot more than usual: not at all 9. Thoughts that you would be better off or of hurting yourself in some way: not at all Total score: 0 Depression Screening Interpretation: Negative Depression Screening Done: Yes 00366 - PHQ-9 Billing: Yes Source: Developed by Drs. Jaylon Simons, Elsa Smith, Phani Cooper and colleagues, with an educational maude from [employer]. Thrive Questionnaire Date Thrive assessed: 05/31/25 I am a: Patient What is your living situation today?: I choose not to answer this question Within the past 12 months, did the food you bought not last and you didn't have the money to get more?: I choose not to answer this question Within the past 12 months, did you worry whether your food would run out before you got money to buy more?: I choose not to answer this question Do you have trouble paying for medicines?: I choose not to answer this question Do you have trouble getting transportation to medical appointments?: I choose not to answer this question Do you have trouble paying your heating and electricity bill?: I choose not to answer this question Do you have trouble taking care of your child, family member or friend?: I choose not to answer this question Do you have trouble with day-to-day activities such as bathing, preparing meals, shopping, managing finances, etc.?: I choose not to answer this question Are you currently unemployed and looking for a job?: I choose not to answer this question Are you interested in more education?: I choose not to answer this question Please select the resources that you would like help with: Education Currently or been in a relationship where the following occur: I choose not to answer THRIVE Score: 0 AUDIT C Alcohol Use Questionnaire (AUDIT-C) 1. How often do you have a drink containing alcohol?: Never 2. How many drinks containing alcohol do you have on a typical day when you are drinking?: 1 or 2 3. How often do you have six or more drinks on one occasion?: Never Total Score: 0 DUANE-7 AMB Questionnaire DUANE-7 Date DUANE - 7 assessed: 05/31/25 Feeling nervous, anxious, or on edge: 0 = Not at all Not being able to stop or control worryin = Not at all Worrying too much about different things: 0 = Not at all Trouble relaxin = Not at all Being so restless that it is hard to sit still: 0 = Not at all Becoming easily annoyed or irritable: 0 = Not at all Feeling afraid as if something awful might happen: 0 = Not at all Total DUANE-7 score (0-4 normal; 5-9 mild; 10-14 moderate; 15-21 severe): 0 Source: Developed by Drs. Jaylon Simons, Elsa Smith, Phani Cooper and colleagues, with an educational maude from [employer]. DUANE-7 Assessment Billing DUANE-7 Assessment Tool: DUANE-7 Assessment 90985 Physical exam (Primary Care) Vital Signs: Last Vital Signs Temp 97.5 F 05/31/25 12:09 Pulse 75 05/31/25 12:09 Resp 14 05/31/25 12:09 BP 118/72 05/31/25 12:09 Pulse Ox 98 05/31/25 12:09 Oxygen Delivery Method Room Air 05/31/25 12:09 BMI result Body Mass Index 31.1 Tobacco/Smoking Status: Tobacco use Status Tobacco use date assessed 05/31/25 05/31/25 12:11 Patient Tobacco Use Status Never used Tobacco 05/31/25 12:08 e-Cigarette/Vaping Use Never Used 05/31/25 12:08 PHQ-9: PHQ-9 Score PHQ-9: Total score 0 05/31/25 12:12 Depression Screening Interpretation: Negative Thrive Assessment: Date of Thrive Assessment Date Thrive assessed 05/31/25 05/31/25 12:06 Currently or been in a relationship where the following occur: I choose not to answer Coding Level of Care Code Est Pt Level 3 (32249) Diagnoses Abdominal pain R10.9 GERD without esophagitis K21.9 Low back pain M54.50 Additional Codes DUANE-7 Assessment Billing - DUANE-7 Assessment Tool: DUANE-7 Assessment 90140 ([id number]) PHQ-9 - 05197 - PHQ-9 Billing: Yes ([id number]) Assessment & Plan Assessment & Plan (1) Abdominal pain: Code(s): R10.9 - Unspecified abdominal pain Category: Medical Plan: 59-year-old female with history of GERD presents with left upper quadrant discomfort and some abdominal distension/bloating. Recent H pylori test was negative Moving her bowels passing gas. She says she is drinking plenty of fluid Encouraged her to drink between 64 and 72 oz of water day Try some MiraLax will give her a script for omeprazole Check KUB Refer to Gastroenterology (2) GERD without esophagitis: Code(s): K21.9 - Gastro-esophageal reflux disease without esophagitis Category: Medical Plan: As above (3) Low back pain: Code(s): M54.50 - Low back pain, unspecified Category: Medical Plan: Ongoing low back pain which is worse with leaning forward or lying back from a sitting position. Tenderness at lumbar paraspinous muscles bilaterally Likely muscular strain Can use OTC ibuprofen, ice/heat Will benefit from physical therapy-ordered Orders: Orders XR KUB Today R10.9 - Unspecified abdominal pain XR lumbar spine 2-3V Today M54.50 - Low back pain, unspecified PT Evaluation and Treatment Today M54.50 - Low back pain, unspecified Referrals Gastroenterology Referral R10.9 - Unspecified abdominal pain Medications: New polyethylene glycol 3350 (Miralax) 17 grams PO DAILY 14 ea 0RF 14 days omeprazole 20 mg PO DAILY 30 caps 0RF 30 days
[2025-05-31 12:09] VITALS: BP 118/72; PULSE 75; RESP 14; TEMP 36.4; O2SAT 98; BMI 31.1
--- OUTSIDE RECORDS SUMMARY | 2025-05-31 14:42 | XMS_ITS | Encounter Summary ---
Demographics
== END 2025-05-31 12:24 | disposition home or self-care (01) ==
LOC: HO.HMCFM 12:01
PROVIDERS: PCP Family Medicine; Visit Provider Family Medicine
DX: R10.9 Unspecified abdominal pain (principal); K21.9 Gastro-esophageal reflux disease without esophagitis; M54.50 Low back pain, unspecified

== ENCOUNTER → 2025-05-31 12:00 | Outpatient (BNVA) | payer OTHER, SELFPAY | PROVIDERS: PCP Family Medicine; Visit Provider Family Medicine | DX: K21.9 Gastro-esophageal reflux disease without esophagitis (principal); M54.50 Low back pain, unspecified; R10.9 Unspecified abdominal pain | CPT/HCPCS: 96127 ==

== ENCOUNTER 2025-06-01 09:38 | Outpatient (REF) | payer OTHER, SELFPAY ==
--- NOTE | ~2025-06-01 | XR_ITS ---
EXAMINATION: XR ABDOMEN KUB CLINICAL INDICATION: R10.9 - Unspecified abdominal pain COMPARISON: None available. TECHNIQUE: AP view of the abdomen. FINDINGS: The bowel gas pattern is normal with no evidence of ileus or obstruction. No unusual soft tissue calcifications are noted. The bones are unremarkable. XR/XR KUB IMPRESSION: Unremarkable examination. Electronically signed by: Bhavin Lieberman MD 06/01/2025 10:23 AM EDT
--- NOTE | ~2025-06-01 | XR_ITS ---
EXAMINATION: XR LUMBOSACRAL SPINE CLINICAL INFORMATION: M54.50 - Low back pain, unspecified COMPARISON: None available. TECHNIQUE: Three views of the lumbosacral spine. FINDINGS: SI joints demonstrate minimal subchondral sclerosis. There are 5 non-rib bearing lumbar segments. However, there is a transitional L5 segment with a transverse processes pseudoarticulating with sacrum Vertebral body height is preserved. There is subtle convex right curvature. T12-L1: Unremarkable L1-L2: Unremarkable L2-L3: Unremarkable L3-L4: Unremarkable L4-L5: There is minimal disc space narrowing and grade 1 anterolisthesis L5-S1: Unremarkable XR/XR lumbar spine 2-3V IMPRESSION: L4-5 demonstrates minimal disc space narrowing with grade 1 anterolisthesis. Electronically signed by: Bhavin Lieberman MD 06/01/2025 10:23 AM EDT
--- OUTSIDE RECORDS SUMMARY | 2025-06-01 11:32 | XMS_ITS | Encounter Summary ---
Author Organization [facility] Address [address] [facility] [address] [place] [address] Phone Care Team Providers Care Music Arranger Name Role Phone Stephen Bueno MD Primary Care Provider [phone] Stephen Bueno MD Unavailable [phone] Stephen Bueno MD Unavailable [phone] Blas Evans MD, PhD Primary Care Prov ider Encounter Details Date Type Department Care Team (Latest Contact Info) Description 04/05/2016 Transcribe Orders [facility] [address] [address] Janet [email or web address] Visit for screening mammogram (Primary Dx) Social [...] Primary documented in this encounter Care Teams Music Arranger Relationship Specialty Start Date End Date Stephen Bueno MD [address] [place] [address] PCP - General Internal Medicine 02/03/15 01/17/18 Blas Evans MD, PhD [address] [place] [phone] [email or web address] PCP - General Internal Medicine 01/18/18 05/29/21 Stephen Bueno MD [address] [place] [address] Insurance Assigned Provider 04/09/15 12/07/17 Stephen Bueno MD [address] [place] [phone] Partners Attributed Provider 11/13/15 02/15/18 documented as of this encounter Additional Source Comments The information contained in this document represents components of the legal health record. It is not the complete legal health record.[facility]
--- OUTSIDE RECORDS SUMMARY | 2025-06-01 11:32 | XMS_ITS | Clinical Summary ---
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, lives with 3 adult sons, feels safe [...] Administration Dates Next Due HEP B, PED/ADOL ([id number]/RECOMBIVAX-PEDS) 01/08/2022,12/11/2021 Hep B, Unspecified 09/17/2011,04/03/2011, 011 INFLUENZA, [...] of 2) 2017 Pap Smear 03/29/2021 03/29/2018, 0 12/2012, 10/23/2011 Annual Wellness (Adult): Indicated (All Coverage) 11/10/2022 11/10/2021, 10/17/2020, 09/21/2019, Additional history exists Diabetes Screening 11/10/2022 11/10/2021, 0 10/17/2020, 10/17/2020, Additional history exists Breast Cancer Screening (Mammogram) 11/14/2022 11/14/2020, 11/14/2020 Colorectal Cancer Screening 11/16/2022 FIT/gFOBT 11/16/2022 11/16/2021, 02/0 04/2021, 09/25/2019 Hypertension Screening (#1) 01/08/2023 Cervical Cancer Screening 03/29/2023 Pap + HPV 03/29/2023 03/29/2018, 11/10/2012 Alcohol and Drug Screen 09/09/2024 10/17/19 21, 09/21/2019, 03/29/2018 Depression Annual Screen 09/09/2024 [id number] ( season) 2025 021, 05/10/2021 Imm-Influenza (#1) 2025 06/04/2016, 1 , 06/11/2013, [...] 11:46 AM EST) FIT Negative Negative [facility] Stool Stool specimen / Unknown 11/16/2021 11:46 AM EST 11/16/2021 11:04 AM EST us Komal Cowan MD LAB BODY FLUIDS AND STOOLS AM BULATORY Final Result [facility] CLIA# [id number] [address] [place] [address], * (ABNORMAL) HB A1C (11/10/2021 5:27 PM EST) HEMOGLOBIN A1C 5.7(H) <5.7 % of total Hgb [facility] Comment: For someone without known diabetes, [...] 11/10/2021 5:27 PM EST Narrative [facility] - 11/11/2021 11:32 AM EST patient is not fasting. [facility] Testing performed at: [facility], D[facility], [address], [address], [place], [address], Log Buncher: Lasha Ellis [facility] Collection Date/Time: [id number] [facility] Results Received Date/Time: [id number] [facility] Reported Date/Time: [id number] us Komal Cowan MD LAB - BLOOD DRAW Final Result Performing Organization Address City/[facility]/ZIP Co de Phone Number [facility]) [address] CLIA #[id number] [place] [address], * (ABNORMAL) LIPID PANEL (11/10/2021 5:27 PM [...] LDL-C. Rowdy SS et al. RINA. 2013;310(19): 5561-4585 (http://education.Process Data Control/faq/KGF802) CHOL/HDLC RATIO 4.0 <5.0 (calc) [facility] [...] 11/10/2021 5:27 PM EST Narrative [facility]) - 11/11/2021 11:32 AM EST patient is not fasting. [facility] Testing performed at: 2, DLS [facility], [address] [place] [address], [address], [place], [address], Log Buncher: Lasha Ellis [facility] Collection Date/Time: [id number] [facility] Results Received Date/Time: [id number] [facility] Reported Date/Time: [id number] us Komal Cowan MD LAB - BLOOD DRAW Final Result [facility] [address] CLIA #[id number] [place] [address], [place] * SCREENING MAMMOGRAPHY BI 2-VIEW BREAST INC CAD (11/14/2020) MAMMOGRAM NEGATIVE NEGATIVE BI-RADS ASSESSMENT 1 - Negative: means that there is no significant or noticeable abnormality to report. BI-RADS FOLLOW-UP 1 - Routine Screening Anatomical Region Laterality Modality Mammography 11/14/2020 Narrative 11/14/2020 Collected: 11/14/2020 10:38 AM Department of Radiology [facility] Name: Mario Shah : 1965 [...] EDUARDO FUNES M.D. Date: 11/22/2020 03:51 PM [facility] us Conrado BONILLA IMG MAMMO Fi nal Result * Hepatitis C Antibody (10/17/2020 8:14 PM EST) HEPATITIS C AB Nonreactive Nonreactive [facility] Serum Blood / Unknown 10/17/2020 8 :14 PM EST 10/17/2020 8:14 PM EST Narrative [facility] - 10/18/2020 4:19 PM EST patient is not fasting. us Conrado BONILLA LAB - BLOOD DRAW F inal Result [facility] CLIA# [id number] [address] [place] [address], * Thinprep PAP w/ HPV (03/29/2018 11:09 AM EDT) CLINICAL INFORMATION SEE NOTE [facility] Comment:Normal exam LMP SEE NOTE [facility] Comment:NO LMP RECORDED PREV. PAP 5 [facility]) PREV. BX SEE NOTE [facility] Comment:NG - NOT GIVEN SOURCE Cervix [facility]) STATEMENT OF ADEQUACY SEE NOTE [facility] Comment: Satisfactory for evaluation. Endocervical/transformation zone component present. INTERPRETATION/RESU LT SEE NOTE [facility] Comment:Negative for intraep ithelial lesion or malignancy. INFECTION SEE NOTE [facility] Comment: Shift in vaginal alfonzo suggestive of bacterial vaginosis. COMMENT SEE NOTE [facility] Comment: This Pap test has been evaluated with computer assisted technology. DIESEL TRUCK DRIVER SEE NOTE [facility] Comment: LA, CT(ASCP) CT screening location: [place] [address] COMMENT SEE NOTE [facility] Comment: EXPLANATORY NOTE: The Pap is [...] E6/E7 Not Detected Not Detected [facility] Comment: This test was performed using the APTIMA HPV Assay ([employer] This assay detects E6/E7 viral messenger RNA (mRNA) from 14 high-risk HPV types (16,18,31,33,35,39,45,51,52,56,58,59,66,68). The analytical performance characteristics of this assay have been determined by [facility]. The modifications have not been cleared or approved by the FDA. This assay has been validated pursuant to the CLIA regulations and is used for clinical purposes. Cytologic material (specimen) Cervix uteri structure / Unknown 03/29/2018 11:09 AM EDT 03/29/2018 11:10 AM EDT Narrative [facility] - 04/02/2018 12:58 PM EDT [facility] Testing performed at: 2, [facility], [address] [place] [address], [address], [place], [address], Log Buncher: Lasha Ellis [facility] Collection Date/Time: [id number] [facility] Results Received Date/Time: [facility] Reported Date/Time: postmenopausal Gestational Age (if ): Unknown No LMP recorded. Patient is postmenopausal. us Kaur Rosas MD LAB - PATHOLOGY AND CYTOL OGY AMBULATORY Final Result [facility] [address] [facility] 3rd FLOOR CLIA #[id number] [place] [address], [place] * HIV, 4th Generation (03/29/2018 10:25 AM EDT) CHIV Nonreactive Nonreactive [facility] Serum specimen (specimen) Blood / Unknown 03/29/2018 10:25 AM EDT 03/29/2018 10:25 AM EDT Narrative [facility] - 03/31/2018 3:37 PM EDT patient is not fasting. us Kaur Rosas MD LAB - BLOOD DRAW Final Re sult [facility] CLIA# [id number] [address] [place] [address], [place] [phone] from Last 3 Months or Most Recently Relevant to Health Maintenance Insurance HEALTH SAFETY NET DENTAL [place] DENTAL [facility] [place] PLAN COM Member Subscriber Plan / Payer (Ef fective 2019-Present) Name:Mario Shah Relation to Subscriber:Self Name:Mario Shah Payer ID:[id number] Type:Indemnity Address: [facility] [address] [place] [address] Care Teams Environmental Compliance Engineer Relationship Specialty Start Date End Date Barbara Gray MD [address] [place] [id number] PCP - General 04/02/22
--- OUTSIDE RECORDS SUMMARY | 2025-06-01 11:32 | XMS_ITS | Clinical Summary ---
Author Organization [facility] Address [address] [facility] [address] [place] [address] Phone Care Team Providers Care Family Consumer Scientist Name Role Phone Unavailable Primary Care Provider [...] per pt, and last pap smear in [facility] circa 5 yrs ago. PM prevention [...] COVID-19 VACCINE ( season) 2024 06/01/2021, 05/10/2021 INFLUENZA VACCINE (#1) 2025 6, 07/05/2015, 06/11/2013, Additional history exists LIPID PANEL 10/17/2025 10/17/2020, 09/09, 03/29/2018, Additional [...] EDT) HDL 65(H) 40 - 60 mg/dL [facility] CHOLESTEROL 184 0 - 199 mg/dL [facility] Comment:DESIRABLE: <200 TRIGLYCERIDES 57 40 - 150 mg/dL [facility] LDL 108 0 - 129 mg/dL [facility] Comment: < 100 Optimal, if known or suspected vascular disease is present < 130 Near optimal, if risk factors for vascular disease are present Guidelines set by National Cholesterol Education Program (Adult Treatment Panel III) CARDIAC RISK RATIO 2.8 0.0 - 4.0 B [facility] Blood 12/21/2016 9:13 AM EDT 12/21/2016 1:19 PM EDT us Stephen Bueno MD LAB BLOOD ORDERABLES Final Re sult [place] [address] [place] [address] * Mammogram Screening With Tomosynthesis With CAD [...] her of the findings. CRITICAL RESULTS: None. Stephen Bueno MD IMG MG EXAMS Final Result * Pap Smear (11/17/2015 12:00 AM EST) 11/17/2015 11/18/2015 Narrative [facility] - 11/22/2015 10:27 AM EDT CASE: [id number] PATIENT: MARIO SHAH Specimen(s) Received THINPREP PAP TEST, CERVICAL [facility] Department of Pathology [address] [place] [address] FINAL DIAGNOSIS SPECIMEN ADEQUACY: Satisfactory for evaluation; [...] on Sunday November 22, 2015 at 10:26:31AM Stephen Bueno MD CYTOLOGY [place]ABLES [place] [address] * Hepatitis C antibody, qualitative (07/05/2015 4:53 PM EDT) HCV ANTIBODY Negative Negative [facility] 07/05/2015 4:53 PM EDT 07/05/2015 6:55 PM EDT Stephen Bueno MD LAB BLOOD ORDERABLES Final Re sult [facility] [address] [place] [address] from Last 3 Months or Most Recently Relevant to Health Maintenance Insurance [employer] CONNECTORCARE NON MGB PCP P CONNECTORCARE NON MGB PCP [employer]GP CONNECTORCARE NON MGB PCP [employer]GP CONNECTORCARE NON MGB PCP MGP CONNECTORCARE NON MGB PCP MGP CONNECTORCARE NON MGB PCP CONNECTORCARE NON MGB PCP CONNECTORCARE NON MGB PCP CONNECTORCARE [place] [id number] Additional Source Comments The information contained in this document represents components of the legal health record. It is not the complete legal health record.[facility]
--- OUTSIDE RECORDS SUMMARY | 2025-06-01 11:33 | XMS_ITS | Encounter Summary ---
Author Organization [facility] Address [address] [place] [address] Care Team Providers Care Barrel Rifler Operator Name Role Phone Barbara Gray MD Primary Care Provider + Encounter Details Date Type Department Care Team (Late st Contact Info) Description 11/09/2020 Interim Notes [facility] [address] [place] [address] Conrado Mota PA [address] [place] [address] Social History Tobacco Use Types [...] Collected: 11/14/2020 10:38 AM Department of Radiology [facility] Name: Mario Shah : 1965 [...] EDUARDO FUNES M.D. Date: 11/22/2020 03:51 PM [facility] us Conrado BONILLA IMG MAMMO Fi nal Result documented in this encounter Visit Diagnoses Diagnosis Visit for screening mammogram- Primary Other screening mammogram documented in this encounter Care Teams Barrel Rifler Operator Relationship Specialty Start Date End Date Barbara Gray MD [address] [place] [id number] PCP - General 04/02/22 documented as of this encounter
--- OUTSIDE RECORDS SUMMARY | 2025-06-01 11:33 | XMS_ITS | Encounter Summary ---
Author Organization [facility] Address [address] [place] [address] [place] [address] Phone Care Team Providers Care Screen Making Supervisor Name Role Phone Stephen Bueno MD Primary Care Provider [phone] Stephen Bueno MD Unavailable [phone] Stephen Bueno MD Unavailable [phone] Blas Evans MD, PhD Primary Care Prov ider Encounter Details Date Type Department Care Team (Latest Contact Info) Description 02/16/2015 Transcribe Orders [facility] Radiology [address] [place] [address] Janet [email or web address] Abnormal mammogram (Primary Dx) Social History Tobacco [...] unspecified documented in this encounter Care Teams Screen Making Supervisor Relationship Specialty Start Date End Date Stephen Bueno MD [address] [place] [phone] PCP - General Internal Medicine 02/03/15 01/17/18 Blas Evans MD, PhD [address] [place] [id number] [email or web address] PCP - General Internal Medicine 01/18/18 05/29/21 Stephen Bueno MD [address] [place] [address] Insurance Assigned Provider 04/09/15 12/07/17 Stephen Bueno MD [address] [place] [address] [employer] Attributed Provider 11/13/15 02/15/18 documented as of this encounter Additional Source Comments The information contained in this document represents components of the legal health record. It is not the complete legal health record.[facility]
--- OUTSIDE RECORDS SUMMARY | 2025-06-01 11:33 | XMS_ITS | Encounter Summary ---
Author Organization [facility] Address [address] [facility] [address] [place] [address] Phone Care Team Providers Care Detail Assembler Name Role Phone Stephen Bueno MD Primary Care Provider [phone] Stephen Bueno MD Unavailable [phone] Stephen Bueno MD Unavailable [phone] Blas Evans MD, PhD Primary Care Prov ider Encounter Details Date Type Department Care Team (Latest Contact Info) Description 02/12/2015 Transcribe Orders [facility] [address] [address] Jessie Sotomayor, RT [email or web address] Screening breast examination (Primary Dx) Social [...] examination documented in this encounter Care Teams Detail Assembler Relationship Specialty Start Date End Date Stephen Bueno MD [address] [place] [address] PCP - General Internal Medicine 02/03/15 01/17/18 Blas Evans MD, PhD [facility] [place] [address] [email or web address] PCP - General Internal Medicine 01/18/18 05/29/21 Stephen Bueno MD [address] [place] [id number] Insurance Assigned Provider 04/09/15 12/07/17 Stephen Bueno MD [address] [place] [address] [employer] Attributed Provider 11/13/15 02/15/18 documented as of this encounter Additional Source Comments The information contained in this document represents components of the legal health record. It is not the complete legal health record.[facility]
== END 2025-06-01 09:39 | disposition home or self-care (01) ==
LOC: HO.XRAY 09:38
PROVIDERS: PCP Family Medicine; Visit Provider Family Medicine
DX: R10.9 Unspecified abdominal pain (principal); M54.50 Low back pain, unspecified
CPT/HCPCS: 72100; 74018

== ENCOUNTER → 2025-06-01 09:45 | Outpatient (BNV) | payer OTHER, SELFPAY | PROVIDERS: PCP Family Medicine; Visit Provider Radiology Diagnostic Radiology | DX: M43.16 Spondylolisthesis, lumbar region (principal); R10.9 Unspecified abdominal pain | CPT/HCPCS: 72100; 74018 ==

== ENCOUNTER → 2025-07-12 13:40 | Outpatient (BNVA) | payer OTHER, SELFPAY | PROVIDERS: Visit Provider Emergency Medicine | DX: S93.401A Sprain of unspecified ligament of right ankle, initial encounter (principal); S43.51XA Sprain of right acromioclavicular joint, initial encounter; W23.1XXA Caught, crushed, jammed, or pinched between stationary objects, initial encounter | CPT/HCPCS: 73000; 73610; 99204 ==

== ENCOUNTER → 2025-07-26 09:09 | Outpatient (BNVA) | payer OTHER, SELFPAY | PROVIDERS: PCP Family Medicine; Visit Provider Emergency Medicine | DX: S93.401D Sprain of unspecified ligament of right ankle, subsequent encounter (principal); S43.51XD Sprain of right acromioclavicular joint, subsequent encounter; W23.1XXD Caught, crushed, jammed, or pinched between stationary objects, subsequent encounter | CPT/HCPCS: 99213 ==

== ENCOUNTER 2025-08-03 11:14 | Outpatient (AMB) | payer OTHER, SELFPAY ==
[2025-08-03 11:28] VITALS: BMI 31.1
--- NOTE | 2025-08-03 11:28 | MHC.OFFVIS ---
Vital Signs 08/03/25 11:28 Height 5 ft 2 in Weight 170 lb BMI 31.1 Intake Visit Reasons: Right ankle pain/sprain Intake Note: Mario is a 59 year old female who presents today as a new patient for an evaluation of her right ankle sprain. Patient reports she was injured at work around sometime in june and she was seen at [facility] ED where she was provided with an aircast. She is currently attending PT for her right shoulder and ankle pain. No imaging in patients chart despite being seen at [facility] Allergies No Known Allergies Allergy (Verified 08/03/25 11:44) HPI Comments Details: The patient is a 59-year-old individual with a past medical history as seen below presenting with right ankle pain after an injury. 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 The patient states she had x-rays done at a different location but does not have the imaging or report with her today. Patient states she has been using lidocaine patches PRN for pain and has already started physical therapy. Patient also has been using KT tape with some relief. Initially, the patient experienced swelling and bruising, but these symptoms have since resolved. The patient reports pain when pressure is applied to certain areas of the ankle. The patient has not been taking any medication for the pain but has used ice in the past. Patient was given an Aircast which she has been using with minimal relief. Patient also states she hears a cracking sound when moving the ankle. She denies any other pedal concerns. [facility] Medical History (Updated 08/09/25 @ 10:00 by Angeles Paul DPM) Right ankle injury Right ankle sprain Right ankle pain Gastroenteritis [place] of foot GERD without esophagitis Surgical History No pertinent past surgical history Social History (Updated 05/31/25 @ 12:08 by Delfina Ness CMA) Household Members: Children Housing: House Are you a primary overnight caregiver to a significant other at home: No Do you presently have visiting nurse or other home services: No 75 years or older and lives alone: No Alcohol intake: never Patient Tobacco Use Status: Never used Tobacco e-Cigarette/Vaping Use: Never Used Second Hand Smoke Exposure: No service: No Current occupational status: employed 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 - General: Denies current swelling or bruising of the ankle All systems reviewed & are unremarkable except as noted in HPI and below Physical Exam Vital Signs: BMI result Body Mass Index 31.1 Extrem Other: RLE Focused Physical Exam: Derm: No open lesions, abrasions, or wound noted. Skin supple and turgor WNL. No ecchymosis or discoloration. No clinical signs of infection. Vasc: DP/PT pulses palpable. CFT < 3 secs. Temp gradient warm to warm. Mild edema noted to the ankle. Pedal hair abent. No varicosities noted. Neuro: Protective sensations grossly intact. MSK: Pain on palpation to the ankle in th area of the lateral ankle ligaments. No crepitus or fluctuance noted. Pain with ankle ROM. MMT 4/5. ROM of the forefoot and hindfoot WNL. Negative anterior drawer test. Mildly antalgic gait unassisted noted. Results Reviewed Results Reviewed: Ordered right ankle xrays to be performed if patient is unable to obtain previous right ankle xrays before next appt. Assessment & Plan Assessment & Plan (1) Right ankle pain: Code(s): M25.571 - Pain in right ankle and joints of right foot Category: Medical Qualifiers: Chronicity: acute Qualified Code(s): M25.571 - Pain in right ankle and joints of right foot (2) Right ankle sprain: Code(s): S93.401A - Sprain of unspecified ligament of right ankle, initial encounter Category: Medical Qualifiers: Encounter type: initial encounter Involved ligament of ankle: unspecified ligament Qualified Code(s): S93.401A - Sprain of unspecified ligament of right ankle, initial encounter (3) Right ankle injury: Code(s): S99.911A - Unspecified injury of right ankle, initial encounter Category: Medical Qualifiers: Encounter type: initial encounter Qualified Code(s): S99.911A - Unspecified injury of right ankle, initial encounter Plan Patient was informed and verbally consented to the use of an ambient scribe for clinic note documentation during this visit. I discussed with the patient the likely diagnosis of a right ankle sprain and the management plan, which includes continuing physical therapy and using a lace-up brace for support. I recommended obtaining x-rays to ensure there are no fractures or internal injuries. We agreed on a follow-up appointment in three weeks to evaluate the patient's progress and review the x-ray results. - Continue physical therapy to aid in recovery of the ankle sprain. - Provided patient with a lace up ankle stabilizing brace to be worn with activity and when ambulating. - Obtain right ankle xrays. - Continue RICE protocol. - May take Ibuprofen or Tylenol prn for pain. RTC in 3 weeks. Orders: Orders XR ankle RT min 3V 08/03/25 M25.571 - Pain in right ankle and joints of right foot, S93.401A - Sprain of unspecified ligament of right ankle, initial encounter, S99.911A - Unspecified injury of right ankle, initial encounter Coding Level of Care Code New Pt Level 4 (95110) Diagnoses Acute right ankle pain M25.571 Chronicity: acute Sprain of right ankle, unspecified ligament, initial encounter S93.401A Encounter type: initial encounter Involved ligament of ankle: unspecified ligament Injury of right ankle, initial encounter S99.911A Encounter type: initial encounter Time Spent (min) 46
== END 2025-08-03 11:57 | disposition home or self-care (01) ==
LOC: HO.HPODS 11:15
PROVIDERS: PCP Family Medicine; Visit Provider Student in an Organized Health Care Education/Training Program
DX: M25.571 Pain in right ankle and joints of right foot (principal); S93.401A Sprain of unspecified ligament of right ankle, initial encounter; S99.911A Unspecified injury of right ankle, initial encounter
CPT/HCPCS: 99204

== ENCOUNTER → 2025-08-03 11:14 | Outpatient (BNVA) | payer OTHER, SELFPAY | PROVIDERS: PCP Family Medicine; Visit Provider Student in an Organized Health Care Education/Training Program | DX: S93.401A Sprain of unspecified ligament of right ankle, initial encounter (principal); S99.911A Unspecified injury of right ankle, initial encounter; X58.XXXA Exposure to other specified factors, initial encounter; Y93.9 Activity, unspecified; Y92.9 Unspecified place or not applicable; Y99.0 Civilian activity done for income or pay | CPT/HCPCS: 99202 ==

== ENCOUNTER → 2025-08-09 09:16 | Outpatient (BNVA) | payer OTHER, SELFPAY | PROVIDERS: PCP Family Medicine; Visit Provider Emergency Medicine | DX: S93.401D Sprain of unspecified ligament of right ankle, subsequent encounter (principal); S43.51XD Sprain of right acromioclavicular joint, subsequent encounter; W23.1XXD Caught, crushed, jammed, or pinched between stationary objects, subsequent encounter | CPT/HCPCS: 99213 ==

== ENCOUNTER 2025-08-13 08:51 | Outpatient (REF) | payer OTHER, SELFPAY | END 2025-08-13 08:52 | disposition home or self-care (01) | LOC: HO.LAB 08:51 | PROVIDERS: PCP Family Medicine; Visit Provider Advanced Practice Midwife | DX: Z01.419 Encounter for gynecological examination (general) (routine) without abnormal findings (principal); R10.20 Pelvic and perineal pain unspecified side; Z12.39 Encounter for other screening for malignant neoplasm of breast | CPT/HCPCS: 87086 ==

== ENCOUNTER 2025-08-13 08:51 | Outpatient (AMB) | payer OTHER, SELFPAY ==
--- NOTE | 2025-08-13 08:52 | A.OFFVIS_ITS ---
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 previous care in [place] , no records availble She has the following concerns: pelvic pain radiating to the LLQ She is in a relationship with the father of her children , but he remains in [facility], does visit on occasion She denies any issues of DV she agrees to gc/ct screening Exercise: daily walks Nutrition/calcium: adequate intake Contraception: post menopause, denies any abormal vag bleeding Last Pap: unknown , Last mammo: unknown, she monica family hx of Br/ov/colon cancer she has been referred by he PCP to GI for bloating, though no f/u appt yet. she is given number of GI office to contact [facility] Medical History Right ankle injury Right ankle sprain Right ankle pain Gastroenteritis [place] of foot GERD without esophagitis Surgical History No pertinent past surgical history Family History Father Glaucoma Mother No problems noted. Sister No problems noted. Sister No problems noted. Social History (Updated 08/13/25 @ 09:22 by Tammy Padilla CNM) Household Members: Children Housing: House Are you a primary pet caregiver to a significant other at home: No Do you presently have visiting nurse or other home services: No 75 years or older and lives alone: No Alcohol intake: never Patient Tobacco Use Status: Never used Tobacco e-Cigarette/Vaping Use: Never Used Second Hand Smoke Exposure: No service: No Current occupational status: employed Current occupation: [employer], [employer] Sexual orientation: Straight/Heterosexual Gender identity: Female Cognitive needs: No Hearing needs: No Vision needs: Yes (wears glasses, needs eye doctor) Female Reproductive History Menstrual Menopause type: natural Total pregnancies: 2 Full term: 2 Number of Living Children: 3 Multiple births: 1 Review of Systems Const Reports no additional complaints Eyes Reports no additional complaints ENT Reports no additional complaints Card Reports no additional complaints Resp Reports no additional complaints GI Reports no additional complaints Reports as per HPI Skin/Breast Reports system reviewed and no additional complaints, except as documented Physical Exam Vital Signs: Last Vital Signs BP 118/82 08/13/25 08:54 BMI result Body Mass Index 31.6 Const General: cooperative, healthy appearing and no acute distress Orientation/consciousness: patient oriented x3 HEENT Other: wears glasses Head: Yes normal to inspection and Yes normocephalic Ears: external ears normal General nose exam: Normal external nose present Neck Neck: Yes normal visual inspection Chest Breast/axilla inspection: normal inspection of the breasts, normal inspection of the axillae and Other (No skin changes, peau d orange, or nipple discharge noted) Breast/axilla palpation: normal palpation of the breasts, normal palpation of the axillae and no axillary lymphadenopathy Resp Effort & Inspection: normal respiratory effort and able to speak in complete sentences GI Inspection: No distended Palpation (GI): Soft to palpation, nontender and no masses Percussion: Yes normal to percussion Rectal Exam - Female: No External hemorrhoid(s) present External Female Exam: normal external appearance and normal appearance of the urethra Speculum Exam - Vagina: normal appearance of the vagina, normal vaginal discharge and vagina atrophic Speculum Exam - Cervix: normal appearance of the cervix (pale/menopausal atrophy) and normal palpation (neg CMT) Bimanual exam- vagina & uterus: normal bimanual exam, normal palpation (neg CMT), uterine mobility normal and non-tender Bimanual Exam- Adnexa, other: no masses and No adnexal tenderness Skin General skin exam: no rashes or lesions noted Neuro General: patient oriented x3 and moves all extremities Extrem Other: right ankly support /splint in place s/p injury Psych Speech and movement: Normal speech and movement present Affect: normal affect Attitude: cooperative Thought process: Normal thought process present Results AMB Urinalysis Dipstick UR Leukocytes Small Last Edit by Elvia Lozada CMA on 08/13/25 09:14 UR Nitrite Negative Last Edit by Elvia Lozada, SEED AND FERTILIZER SPECIALIST on 08/13/25 09:14 UR Urobilinogen Normal Last Edit by Elvia Lozada, SEED AND FERTILIZER SPECIALIST on 08/13/25 09:14 UR Protein Negative Last Edit by Elvia Lozada, SEED AND FERTILIZER SPECIALIST on 08/13/25 09:14 UR Ph 7.5 Last Edit by Elvia Lozada, SEED AND FERTILIZER SPECIALIST on 08/13/25 09:14 UR Blood Negative Last Edit by Elvia Lozada, SEED AND FERTILIZER SPECIALIST on 08/13/25 09:14 UR Specific [place] 1.010 Last Edit by Elvia Lozada, SEED AND FERTILIZER SPECIALIST on 08/13/25 09:14 UR Ketone Negative Last Edit by Elvia Lozada, SEED AND FERTILIZER SPECIALIST on 08/13/25 09:14 UR Bilirubin Negative Last Edit by Elvia Lozada, SEED AND FERTILIZER SPECIALIST on 08/13/25 09:14 UR Glucose Negative Last Edit by Elvia Lozada, SEED AND FERTILIZER SPECIALIST on 08/13/25 09:14 Results Reviewed Results Reviewed: Laboratory Last Values Urine pH (Clinic) 7.5 08/13/25 09:04 Specific [place] (Clinic) 1.010 08/13/25 09:04 Ur Protein (Clinic) Negative 08/13/25 09:04 Ur Ketones (Clinic) Negative 08/13/25 09:04 Urine Blood (Clinic) Negative 08/13/25 09:04 Urine Nitrite Negative 08/13/25 09:04 Urine Bilirubin (Clinic) Negative 08/13/25 09:04 Urobilinogen (Clinic) Normal 08/13/25 09:04 Leukocyte Esterase (Clinic) Small 08/13/25 09:04 Urine Glucose (Clinic) Negative 08/13/25 09:04 Assessment & Plan Assessment & Plan (1) Well woman exam with routine gynecological exam: Code(s): Z01.419 - Encounter for gynecological examination (general) (routine) without abnormal findings (2) Screening breast examination: Code(s): Z12.39 - Encounter for other screening for malignant neoplasm of breast (3) Screening for malignant neoplasm of cervix: Code(s): Z12.4 - Encounter for screening for malignant neoplasm of cervix (4) Pelvic pain: Code(s): R10.20 - Pelvic and perineal pain unspecified side Plan During the visit, the following areas of concern were addressed: Regular exercise Healthy lifestyle Domestic violence Menopausal/linda-menopausal signs and symptoms, including nonprescription strategies for management Health Maintenance and Screening -Reviewed ASCCP guidelines for Paps and yearly (bi-yearly ) pelvic exam. -Reviewed and encouraged diet and exercise for cardiovascular and bone health -Reviewed breast self-awareness. Importance of yearly mammogram after age 40 (earlier if first-degree relative with breast cancer at a younger age ) Discuss use of 3 times per week weight-bearing exercise, vitamin D3 and servings of dietary calcium daily for bone health. -continue to follow with PCP for general medical care, immunizations. Screening strategies for colon cancer after age 50. Discussion of Kegel exercises for urinary incontinence Family and personal history of cancer reviewed. Genetic screening - not indicated The patient has BMI: 31 The patient is overweight. Approaches towards weight loss are discussed including burning more calories than one takes in by frequent, small meals, portion control, avoiding eating before bedtime, regular exercise with an emphasis on duration rather than intensity, strength training exercise RTO one year or sooner omid Padilla CNM Note about provider documentation : If you or the patient named in this chart and are reviewing your medical notes, please note that medical documentation is often written with abbreviations and medical terminology, and directed for other providers who may be involved in your care as well. Documentation is critical to record what has happened, what tests were ordered, and so they are interpreted with the resulting diagnoses. These nodes have been made available for patient review but not specifically written for the patient. Important health information is always given to my patients in clinical instructions. Please review your after visit summary and our contact our clinical staff if you have any questions. Orders: Orders AMB Urinalysis Dipstick Today R10.20 - Pelvic and perineal pain unspecified kimmy e MM tomosynthesis screening BI 1 Month Z01.419 - Encounter for gynecological examination (general) (routine) without abnormal findings, Z12.39 - Encounter for other screening for malignant neoplasm of breast US pelvic and transvaginal 1 Week R10.20 - Pelvic and perineal pain unspecified side Urine Culture Today R10.20 - Pelvic and perineal pain unspecified side, Z01.419 - Encounter for gynecological examination (general) (routine) without abnormal findings Pap Smear Today R10.20 - Pelvic and perineal pain unspecified side, Z01.419 - Encounter for gynecological examination (general) (routine) without abnormal findings CT NG by PCR Vag/Cerv Today R10.20 - Pelvic and perineal pain unspecified side, Z01.419 - Encounter for gynecological examination (general) (routine) without abnormal findings Bacterial Vaginosis Panel Today R10.20 - Pelvic and perineal pain unspecified side, Z01.419 - Encounter for gynecological examination (general) (routine) without abnormal findings HPV High risk Today R10.20 - Pelvic and perineal pain unspecified side, Z01.419 - Encounter for gynecological examination (general) (routine) without abnormal findings Coding Level of Care Code New Pt Prev Care 40-64y(21667) Diagnoses Well woman exam with routine gynecological exam Z01.419 Screening breast examination Z12.39 Screening for malignant neoplasm of cervix Z12.4 Pelvic pain R10.20
[2025-08-13 08:54] VITALS: BP 118/82; BMI 31.6
== END 2025-08-13 09:51 | disposition home or self-care (01) ==
LOC: HO.HWS 08:51
PROVIDERS: PCP Family Medicine; Visit Provider Advanced Practice Midwife
DX: Z01.419 Encounter for gynecological examination (general) (routine) without abnormal findings (principal); R10.22 Pelvic and perineal pain left side; Z12.39 Encounter for other screening for malignant neoplasm of breast
CPT/HCPCS: 99386; 99459

== ENCOUNTER 2025-08-13 09:43 | Outpatient (REF) | payer OTHER, SELFPAY ==
[2025-08-13 15:33] LABS: Bacterial Vaginosis PCR NEGATIVE (Negative); Candida Group PCR NOT DETECTED (Not Detect); Candida glab krusei PCR NOT DETECTED (Not Detect); Trichomonas vaginalis PCR NOT DETECTED (Not Detect)
[2025-08-13 16:14] LABS: CT PCR NOT DETECTED (Not Detect.); NG PCR NOT DETECTED (Not Detect.)
== END 2025-08-13 09:44 | disposition home or self-care (01) ==
LOC: HO.LNP 09:43
PROVIDERS: Visit Provider Advanced Practice Midwife
DX: Z01.419 Encounter for gynecological examination (general) (routine) without abnormal findings (principal); Z20.2 Contact with and (suspected) exposure to infections with a predominantly sexual mode of transmission; Z11.51 Encounter for screening for human papillomavirus (HPV); R10.20 Pelvic and perineal pain unspecified side
CPT/HCPCS: 81515; 87491; 87591; 87626; 88175

== ENCOUNTER 2025-08-25 11:07 | Emergency (ER) | payer OTHER, SELFPAY ==
--- NOTE | ~2025-08-25 | XR_ITS ---
EXAMINATION: XR KNEE 4 OR MORE VIEWS LEFT HISTORY: fall, patellar tenderness COMPARISON: There are no prior studies available for comparison. FINDINGS: Four views of the left knee are submitted. Osseous mineralization is normal. There is no fracture or dislocation. The joint spaces are preserved. The soft tissues are unremarkable. There is no joint effusion. XR/XR knee LT 4V IMPRESSION: No evidence of fracture of the left knee. Electronically signed by: Jaylon Escalante MD 08/25/2025 11:48 AM [facility]
[2025-08-25 11:33] VITALS: BP 160/92; PULSE 78; RESP 18; TEMP 36.4; O2SAT 99; BMI 31.1
--- NOTE | 2025-08-25 11:34 | ED_ITS ---
HPI - General Adult General Chief complaint: Extremity Injury, Lower Stated complaint: needs knee looked at? Time Seen by Provider: 08/25/25 12:25 Source: patient Mode of arrival: ambulatory Limitations: no limitations History of Present Illness ED Provider: Tenisha Garcias PA-C HPI narrative: Patient is a 59 year old female with a history of GERD presenting to the emergency department today with non healing left knee wound. Patient states that she fell approximately 10 days ago and scraped her left knee. Patient states that she is concerned because it is not healing. Patient denies any history of diabetes. Patient denies any other complaints at this time. Related Data Previous Rx's ?Medication ?Instructions ?Recorded cephalexin 500 mg capsule 500 mg PO Q6H 7 days #28 cap s 08/25/25 Allergies Allergy/AdvReac Type Severity Reaction Status Date / Time No Known Allergies Allergy Verified 08/25/25 11:36 Review of Systems 2 Constitutional: Constitutional: Reports as per HPI Eyes: Eyes: Reports as per HPI ENT: Reports as per HPI Cardiovascular: Cardiovascular: Reports as per HPI Respiratory: Respiratory: Reports as per HPI Gastrointestinal: Gastrointestinal: Reports as per HPI Genitourinary: Genitourinary: Reports as per HPI Musculoskeletal: Musculoskeletal: Reports as per HPI Integumentary/Breasts: Skin/Breast: Reports as per HPI Neurologic: Reports as per HPI Psychiatric: Psychiatric: Reports as per HPI Endocrine: Endocrine: Reports as per HPI Hematologic/Lymphatic: Hematologic/Lymphatic: Reports as per HPI Allergic/Immunologic: Allergic/Immunologic: Reports as per HPI [facility] Past Medical History Attestation statement: The following information was validated with the patient. Source: old records reviewed and nursing notes reviewed Medical History Right ankle injury Right ankle sprain Right ankle pain Gastroenteritis [place] of foot GERD without esophagitis Surgical History No pertinent past surgical history Family History Family History Father Glaucoma Mother No problems noted. Sister No problems noted. Sister No problems noted. Social History Social History Household Members: Children Housing: House Are you a primary lawn caretaker to a significant other at home: No Do you presently have visiting nurse or other home services: No Alcohol intake: never Patient Tobacco Use Status: Never used Tobacco e-Cigarette/Vaping Use: Never Used Second Hand Smoke Exposure: No service: No Current occupational status: employed Current occupation: [employer], [employer] Sexual orientation: Straight/Heterosexual Gender identity: Female Cognitive needs: No Hearing needs: No Vision needs: Yes (wears glasses, needs eye doctor) Physical Exam ED Vital Signs: Vital Signs - 24 hr 08/25/25 11:33 08/25/25 13:35 Temperature 97.6 F 97.6 F Pulse Rate 78 78 Respiratory Rate 18 18 Blood Pressure 160/92 H 160/92 H Pulse Oximetry 99 99 Oxygen Delivery Method Room Air Room Air BMI result Body Mass Index 31.1 Const General: cooperative, no acute distress, alert and awake Nutritional Appearance: well nourished Orientation/consciousness: patient oriented x3 HENMT Head: Yes normal to inspection and Yes atraumatic Ears: hearing grossly normal bilaterally and external ears normal General nose exam: Normal external nose present, no nasal discharge noted and no epistaxis Face and sinus: Yes normal facial exam, No abrasion and No laceration Mouth: Normal oral and palatal mucosa present, no drooling and no muffled voice Eyes General: appearance normal, both eyes and all related structures Periorbital: periorbital findings normal Eyelids: Yes eyelids normal Conjunctivae: conjunctivae normal Pupils: Equal, round and reactive pupils present EOM: EOMs intact bilaterally Neck Neck: Yes normal visual inspection and Yes full ROM Resp Effort & Inspection: normal respiratory effort and able to speak in complete sentences Neuro General: patient oriented x3, moves all extremities and CN's II-XI intact bilaterally Cranial nerves: Yes Equal, round and reactive pupils present Cognition (Neuro): normal cognition Extrem Other: General: Yes full ROM and Yes capillary refill normal Psych Appearance: grossly normal Mental Status: mental status grossly normal Affect: normal affect Attitude: cooperative Thought process: Normal thought process present Thought content: Normal thought content present Insight: Good insight present (Psych) Course Course Course Narrative: This is a rapid medical exam performed by Ina Soni NP: Additional HPI, ROS, PE not included below will be deferred to primary provider. Patient is a 59y/o F presenting with L knee pain. States she fell onto L knee the saturday before last. Has abrasion to knee. Plan: x-ray Medications Administered Discontinued Medications Generic Name Dose Route Start Last Admin Trade Name Juliana PRN Reason Stop Dose Admin Bacitracin 2 appl 08/25/25 12:39 08/25/25 13:21 Bacitracin Oint 0.9 Gm Packet TOPICAL 08/25/25 12:40 2 appl ONCE ONE Administration Protocol Medical Decision Making Medical Decision Making MDM Narrative: Patient is a 59 year old female with a history of GERD presenting to the emergency department today with non healing left knee wound. Patient's physical exam was as noted in the physical exam portion of this note. Patient's abrasion appears to be erythematous and potentially cellulitic. Patient's left knee x-ray showed no acute process. I explained my physical exam findings as well as all test results to the patient. I answered all questions asked by the patient. Patient's left knee wound was covered with bacitracin + non-stick gauze, without incident. Patient prescribed PO antibiotic for possible cellulitis. I stressed the importance of the patient taking her medication as directed (either prescribed or as the over the counter packaging recommends). I stressed the importance of the patient following up with her primary care provider and the wound center. I stressed the importance of the patient returning to the emergency department immediately if her symptoms were to worsen or if she were to develop any dizziness, shortness of breath, difficulty breathing, chest pain, blurry vision, loss of vision, nausea, vomiting, abdominal pain, fever, chills, back pain, or any other complaints. Patient verbalized agreement and understanding with this treatment plan and discharge. Differential Diagnosis Differential Diagnoses: The differential diagnosis associated with the presentation includes Cellulitis Poor wound healing Abrasion Admission/Observation Consideration of admission/observation: Escalation of care including admission/observation considered Patient would have been admitted to the hospital had her work up had any findings where hospital admission was appropriate and her clinical presentation warranted hospital admission. Independent Interpretation I performed an independent interpretation of an: Plain X-Ray Interpretation: My interpretation is in agreement with the radiologist's impression of this imaging study as written below. EXAMINATION: XR KNEE 4 OR MORE VIEWS LEFT HISTORY: fall, patellar tenderness COMPARISON: There are no prior studies available for comparison. FINDINGS: Four views of the left knee are submitted. Osseous mineralization is normal. There is no fracture or dislocation. The joint spaces are preserved. The soft tissues are unremarkable. There is no joint effusion. XR/XR knee LT 4V IMPRESSION: No evidence of fracture of the left knee. Electronically signed by: Jaylon Escalante MD 08/25/2025 11:48 AM EST Dictated By: Jaylon Escalante MD Signed By: Electronically signed by Jaylon Escalante MD 08/25/25 1148 Radiology Impression Discussion of test interpretation with radiology: I have reviewed the radiologist's reading. Prescription Management I considered prescription management with: Antibiotic (patient prescribed an antibiotic for possible left knee cellulitis) Discharge Plan Discharge Clinical Impression: Cellulitis, Abrasion of skin Patient Disposition: Home, Self-Care Instructions: Cellulitis (ED) Additional Instructions: Your left knee x-ray showed no evidence of fracture/break or infection in the bone. I am concerned your left knee wound is infected - please take your antibiotic as prescribed and follow up with the wound center to ensure proper healing. IF your wound was dressed with a bandage - it is CRUCIAL you perform daily wound checks and dressing changes (if necessary). The bandage / dressing should NEVER be so tight that sensation / function / color of the effected area changes IN ANY WAY. If it ever is too tight that sensation / function / color of the effected area changes - REMOVE THE BANDAGE / DRESSING IMMEDIATELY. IF you are prescribed home medications and/or you are taking over the counter medications at home - it is very important you continue to do so as prescribed / directed unless told otherwise by a healthcare provider. Follow up with your primary care provider. Do your best to stay well hydrated and rest. Return to the emergency department immediately if your symptoms worsen or if you develop any numbness, tingling, dizziness, shortness of breath, difficulty breathing, chest pain, blurry vision, loss of vision, nausea, vomiting, abdominal pain, fever, chills, back pain, or any other complaints. L If you do not have a primary care provider - call any of the below numbers to establish and follow up with a primary care provider. [facility] Primary Care ([place]) [phone] [place] [address], [address] [facility] Primary Care ([address] [place]) [phone] [place] [address], [address] [facility], [address] [facility] Primary Care ([address] [place]) [phone] [place] [address], [address] [place], [address] [facility] Primary Care ([place]) [phone] [place] [address], [address] [place], [address] [facility] Family Medicine [phone] [address] [facility], [address] Please see the information below about our Patient Portal. If you are not yet enrolled in the [facility] Patient Portal, you will receive an enrollment email invitation following your visit to any [facility] setting. You may also self-enroll in the Patient Portal by visiting our website: [email or web address] The following information is required to access the Patient Portal: - Your [facility] Medical Record Number - Your personal home email address (must match what is in your electronic medical record, Registration staff can assist with this) - Name - Date of Capabilities of the Patient Portal: - Message some providers - View upcoming appointments - Access your health summary, medical history, and visit history - View current conditions and allergies - View procedure and lab results - View your medications, including guidelines, side effects, and precautions - Complete pre-appointment questionnaires requested by your provider - Ready summary reports of your office visits and procedures To access the Patient Portal Mobile Leodan, follow these directions: - Search [employer] in the Leodan Store or Google Play Store - Download the Leodan - Search for [facility] - Enter your login/password Prescriptions: New cephalexin 500 mg capsule 500 mg PO Q6H 7 Days Qty: 28 0RF Referrals: [facility] Wound Care [Outside] Referral Note: Call to establish and follow up with the wound center to ensure this wound heals properly. Shashank Kaye MD [Primary Care Provider, Internal Medicine] Interventions: ED Discharge Assessment Last Done: 08/25/25 13:35 Discharge Date/Time: 08/25/25 13:36 Print Language: Chinese
[2025-08-25 13:35] VITALS: BP 160/92; PULSE 78; RESP 18; TEMP 36.4; O2SAT 99
--- OUTSIDE RECORDS SUMMARY | 2025-08-25 15:58 | XMS_ITS | Encounter Summary ---
Author Organization Located Within [facility] Address [address] [place] [address] Phone Care Team Providers Care Plycor Operator Name Role Phone Stephen Bueno MD Primary Care Provider [phone] Stephen Bueno MD Unavailable [phone] Stephen Bueno MD Unavailable [phone] Blas Evans MD, PhD Primary Care Prov ider Encounter Details Date Type Department Care Team (Latest Contact Info) Description 02/12/2015 Transcribe Orders [facility] [address] [address] Jessie Sotomayor, RT [email or web address] Screening breast examination (Primary Dx) Social History [...] examination documented in this encounter Care Teams Plycor Operator Relationship Specialty Start Date End Date Stephen Bueno MD [address] [place] [id number] PCP - General Internal Medicine 02/03/15 01/17/18 Blas Evans MD, PhD [facility] [place] [address] [email or web address] PCP - General Internal Medicine 01/18/18 05/29/21 Stephen Bueno MD [address] [place] [id number] Insurance Assigned Provider 04/09/15 12/07/17 Stephen Bueno MD [address] [place] [id number] Partners Attributed Provider 11/13/15 02/15/18 documented as of this encounter Additional Source Comments The information contained in this document represents components of the legal health record. It is not the complete legal health record.Located Within [facility]
--- OUTSIDE RECORDS SUMMARY | 2025-08-25 15:58 | XMS_ITS | Clinical Summary ---
Author Organization [facility] Address [address] [facility] [address] [place] [address] Phone Care Team Providers Care Caustic Room Operator Name Role Phone Unavailable Primary Care [...] per pt, and last pap smear in [facility] circa 5 yrs ago. [...] 04/05/2018 04/05/2016, 02/15/2015 PAP SMEAR 11/16/2020 11/17/2015 INFLUENZA VACCINE (#1) 2025 6, 07/05/2015, 06/11/2013, Additional history exists COVID-19 VACCINE (3 - 2024- season) 2025 06/01/2021, 05/10/2021 LIPID PANEL 10/17/2025 10/17/2020, 09/09, 03/29/2018, Additional history exists COLONOSCOPY 12/19/2027 Postponed from 2012 (Patient Declines / Guardian Declines) Adult Td,Tdap Booster 09/21/2029 09/21/2019, 011 RSV VACCINE (1 - 1-dose 75+ series) 2042 HEPATITIS C SCREENING Completed 07/05/2015 , 07/05/2015, 07/05/2015 HIV ONE-TIME SCREENING (18-65 YEARS) Completed 07/05/2015 [...] EDT) HDL 65(H) 40 - 60 mg/dL [facility] CHOLESTEROL 184 0 - 199 mg/dL [facility] Comment:DESIRABLE: <200 TRIGLYCERIDES 57 40 - 150 mg/dL [facility] LDL 108 0 - 129 mg/dL [facility] Comment: < 100 Optimal, if known or suspected vascular disease is present < 130 Near optimal, if risk factors for vascular disease are present Guidelines set by National Cholesterol Education Program (Adult Treatment Panel III) CARDIAC RISK RATIO 2.8 0.0 - 4.0 B [facility] Blood 12/21/2016 9:13 AM EDT 12/21/2016 1:19 PM EDT us Stephen Bueno MD LAB BLOOD BKR [place] [address] * Mammogram Screening With Tomosynthesis With CAD [...] (11/17/2015 12:00 AM EST) 11/17/2015 11/18/2015 Narrative [facility] - 11/22/2015 10:27 AM EDT CASE: [id number] PATIENT: MARIO SHAH Specimen(s) Received THINPREP PAP TEST, CERVICAL [facility] Department of Pathology [address] [place] [address] FINAL DIAGNOSIS SPECIMEN ADEQUACY: Satisfactory for evaluation; [...] Bueno MD CYTOLOGY [place] [address] * Hepatitis C antibody, qualitative (07/05/2015 4:53 PM EDT) HCV ANTIBODY Negative Negative [facility] 07/05/2015 4:53 PM EDT 07/05/2015 6:55 PM EDT Stephen Bueno MD LAB BLOOD BKR ORDERABLES Yamini eb Result [facility] [address] [place] [address] from Last 3 Months or Most Recently Relevant to Health Maintenance Insurance [employer] NON MGB PCP CONNECTORCARE NON B PCP P CONNECTORCARE NON MGB PCP CONNE[employer] NON MGB PCP [employer] NON MGB PCP [employer] NON MGB PCP [employer] NON MGB PCP [employer] NON MGB PCP [address] [place] [address] MGP [facility] NON MGB PCP Additional Source Comments The information contained in this document represents components of the legal health record. It is not the complete legal health record.[facility]
--- OUTSIDE RECORDS SUMMARY | 2025-08-25 15:58 | XMS_ITS | Encounter Summary ---
Author Organization [employer] [facility] Address [address] [place] [address] Phone Care Team Providers Care Vocational Examiner Name Role Phone Stephen Bueno MD Primary Care Provider [phone] Stephen Bueno MD Unavailable [phone] Stephen Bueno MD Unavailable [phone] Blas Eavns MD, PhD Primary Care Prov ider Encounter Details Date Type Department Care Team (Latest Contact Info) Description 04/05/2016 Transcribe Orders [facility] [address] [address] Janet [email or web address] Visit for screening mammogram (Primary Dx) [...] Primary documented in this encounter Care Teams Vocational Examiner Relationship Specialty Start Date End Date Stephen Bueno MD [address] [place] [address] PCP - General Internal Medicine 02/03/15 01/17/18 Blas Evans MD, PhD [address] [place] [address] [email or web address] PCP - General Internal Medicine 01/18/18 05/29/21 Stephen Bueno MD [address] [place] [phone] Insurance Assigned Provider 04/09/15 12/07/17 Stephen Bueno MD [address] [place] [phone] [employer] Attributed Provider 11/13/15 02/15/18 documented as of this encounter Additional Source Comments The information contained in this document represents components of the legal health record. It is not the complete legal health record.[facility]
--- OUTSIDE RECORDS SUMMARY | 2025-08-25 15:58 | XMS_ITS | Encounter Summary ---
Author Organization [employer] [facility] Address [address] [place] [address] [place] [address] Phone Care Team Providers Care Spindraw Operator Name Role Phone Stephen Bueno MD Primary Care Provider [phone] Stephen Bueno MD Unavailable [phone] Stephen Bueno MD Unavailable [phone] Blas Evans MD, PhD Primary Care Prov ider Encounter Details Date Type Department Care Team (Latest Contact Info) Description 02/16/2015 Transcribe Orders [facility] Rad[facility] [address] [place] [address] Janet [email or web address] Abnormal mammogram (Primary Dx) Social History Tobacco [...] unspecified documented in this encounter Care Teams Spindraw Operator Relationship Specialty Start Date End Date Stephen Bueno MD [address] [place] [address] PCP - General Internal Medicine 02/03/15 01/17/18 Blas Evans MD, PhD [address] [place] [address] [email or web address] PCP - General Internal Medicine 01/18/18 05/29/21 Stephen uBeno MD [address] [place] [address] Insurance Assigned Provider 04/09/15 12/07/17 Stephen Bueno MD [address] [place] [address] [employer] Attributed Provider 11/13/15 02/15/18 documented as of this encounter Additional Source Comments The information contained in this document represents components of the legal health record. It is not the complete legal health record.[facility]
== END 2025-08-25 13:36 | disposition home or self-care (01) ==
PROVIDERS: Emergency Provider Emergency Medicine Emergency Medical Services; PCP Family Medicine
DX: L03.116 Cellulitis of left lower limb (principal); M25.562 Pain in left knee
CPT/HCPCS: 73564; 99282; 99283

== ENCOUNTER → 2025-08-25 11:34 | Outpatient (BNV) | payer OTHER, SELFPAY | PROVIDERS: PCP Family Medicine; Visit Provider Radiology Diagnostic Radiology | DX: M25.562 Pain in left knee (principal); Z04.3 Encounter for examination and observation following other accident | CPT/HCPCS: 73564 ==

== ENCOUNTER 2025-08-26 08:42 | Outpatient (AMB) | payer OTHER, SELFPAY ==
--- NOTE | 2025-08-26 08:47 | MHC.OFFVIS ---
Intake Visit Reasons: f/u xrays; right ankle sprain Intake Note: Mario is a 59 year old female who presents to the office today for a follow up X-rays; right ankle sprain. At last visit patient was instructed to continue physical therapy to aid in recovery of the ankle sprain. Patient was provided with a lace up ankle stabilizing brace to be worn with activity and when ambulating. Pt states she is doing well and she has seen improvement in regards to her ankle pain. Allergies No Known Allergies Allergy (Verified 08/27/25 12:15) HPI Comments Details: The patient is a 59 year old female presenting for follow-up of a right ankle sprain. She reports that her ankle is feeling better and she has been continuing with physical therapy. She has a sensation of leaning to her left side when walking with some imbalance. Additionally, the patient reports injuring her knee yesterday after a fall, though an x-ray was negative for a fracture. She also has ongoing shoulder pain, described as a feeling of pressure when carrying something, for which she has an appointment with another provider tomorrow. She states she has been using the lace-up ankle brace with relief. She denies any new pedal injuries. She denies any other pedal concerns. REPLACED BY [facility] Medical History Right ankle injury Right ankle sprain Right ankle pain Gastroenteritis [place] of foot GERD without esophagitis Surgical History No pertinent past surgical history Family History Father Glaucoma Mother No problems noted. Sister No problems noted. Sister No problems noted. Social History Household Members: Children Housing: House Are you a primary career center director to a significant other at home: No Do you presently have visiting nurse or other home services: No 75 years or older and lives alone: No Alcohol intake: never Patient Tobacco Use Status: Never used Tobacco e-Cigarette/Vaping Use: Never Used Second Hand Smoke Exposure: No service: No Current occupational status: employed Current occupation: [employer], [employer] Sexual orientation: Straight/Heterosexual Gender identity: Female Cognitive needs: No Hearing needs: No Vision needs: Yes (wears glasses, needs eye doctor) Review of Systems Const Details: - Musculoskeletal: Reports improving right ankle pain with minimal pain to the lateral aspect of the ankle. All systems reviewed & are unremarkable except as noted in HPI and below Physical Exam Extrem Other: RLE Focused Physical Exam: Derm: No open lesions, abrasions, or wound noted. Skin supple and turgor WNL. No ecchymosis or discoloration. No clinical signs of infection. Vasc: DP/PT pulses palpable. CFT < 3 secs. Temp gradient warm to warm. Mild edema noted to the ankle. Pedal hair abent. No varicosities noted. Neuro: Protective sensations grossly intact. MSK: Mild Pain on palpation to the lateral aspect of the ankle in the area of the lateral gutter. Mild pain with ankle range of motion worse with dorsiflexion, eversion, and inversion. MMT 5/5. No crepitus or fluctuance noted. ROM of the forefoot and hindfoot WNL. Negative anterior drawer test. Nonantalgic gait unassisted noted. Results Reviewed Results Reviewed: Podiatry read of Right ankle x-ray (CD of imaging brought in by patient): No acute fractures or dislocations noted. Joint spacing within normal limits. X-rays unremarkable. Assessment & Plan Assessment & Plan (1) Right ankle pain: Code(s): M25.571 - Pain in right ankle and joints of right foot Category: Medical Qualifiers: Chronicity: acute Qualified Code(s): M25.571 - Pain in right ankle and joints of right foot (2) Right ankle sprain: Code(s): S93.401A - Sprain of unspecified ligament of right ankle, initial encounter Category: Medical Qualifiers: Encounter type: initial encounter Involved ligament of ankle: unspecified ligament Qualified Code(s): S93.401A - Sprain of unspecified ligament of right ankle, initial encounter (3) Right ankle injury: Code(s): S99.911A - Unspecified injury of right ankle, initial encounter Category: Medical Qualifiers: Encounter type: initial encounter Qualified Code(s): S99.911A - Unspecified injury of right ankle, initial encounter Plan Patient was informed and verbally consented to the use of an ambient scribe for clinic note documentation during this visit. I informed the patient that her ankle x-rays were negative for any fractures. I advised her to continue wearing her ankle brace, especially at work, to ensure the ankle is secure and supported. We discussed that as her pain subsides, she can gradually reduce wearing the brace. I instructed her to follow up as needed but to call us if her pain worsens. - The patient will continue wearing her ankle brace, particularly during work hours, for support and stability. - The use of the brace may be decreased as the pain subsides. - She should continue wearing supportive footwear and avoid barefoot walking. - The patient's final physical therapy session is scheduled for the upcoming Saturday. RTC PRN. Coding Level of Care Code Est Pt Level 3 (08272) Diagnoses Acute right ankle pain M25.571 Chronicity: acute Sprain of right ankle, unspecified ligament, initial encounter S93.401A Encounter type: initial encounter Involved ligament of ankle: unspecified ligament Injury of right ankle, initial encounter S99.911A Encounter type: initial encounter Time Spent (min) 21
--- OUTSIDE RECORDS SUMMARY | 2025-08-26 09:14 | XMS_ITS | Encounter Summary ---
Author Organization [employer] [facility] Address [address] [place] [address] [place] [address] Phone Care Team Providers Care Paper Conservator Name Role Phone Stephen Bueno MD Primary Care Provider [phone] Stephen Bueno MD Unavailable [phone] Stephen Bueno MD Unavailable [phone] Blas Evans MD, PhD Primary Care Prov ider Encounter Details Date Type Department Care Team (Latest Contact Info) Description 02/16/2015 Transcribe Orders [facility] Radiology [address] [place] [address] Janet [email or web address] Abnormal mammogram (Primary Dx) Social History [...] unspecified documented in this encounter Care Teams Paper Conservator Relationship Specialty Start Date End Date Stephen Bueno MD [address] [place] [address] PCP - General Internal Medicine 02/03/15 01/17/18 Blas Evans MD, PhD [address] [place] [address] [email or web address] PCP - General Internal Medicine 01/18/18 05/29/21 Stephen Bueno MD [address] [place] [address] Insurance Assigned Provider 04/09/15 12/07/17 Stephen Bueno MD [address] [place] [address] [employer] Attributed Provider 11/13/15 02/15/18 documented as of this encounter Additional Source Comments The information contained in this document represents components of the legal health record. It is not the complete legal health record.[facility]
== END 2025-08-26 09:01 | disposition home or self-care (01) ==
LOC: HO.HPODS 08:43
PROVIDERS: PCP Family Medicine; Visit Provider Student in an Organized Health Care Education/Training Program
DX: M25.571 Pain in right ankle and joints of right foot (principal); S93.401A Sprain of unspecified ligament of right ankle, initial encounter; S99.911A Unspecified injury of right ankle, initial encounter
CPT/HCPCS: 99213

== ENCOUNTER 2025-08-27 08:48 | Outpatient (REF) | payer OTHER, SELFPAY ==
--- NOTE | ~2025-08-27 | XR_ITS ---
EXAMINATION: XR SHOULDER, RIGHT CLINICAL INFORMATION: M25.519 - Pain in unspecified shoulder COMPARISON: 07/12/2025 clavicle x-ray TECHNIQUE: AP external rotation, Grashey, and axillary views of the right shoulder. FINDINGS: There is mild AC joint elevation, increased since the prior. There is no degenerative change. There is no dislocation. XR/XR shoulder RT min 2V IMPRESSION: Mild AC joint separation, probably grade 2. Electronically signed by: Bhavin Lieberman MD 08/27/2025 12:08 PM WENDY DOBBINS
== END 2025-08-27 08:49 | disposition home or self-care (01) ==
LOC: HO.HOSX 08:48
PROVIDERS: Visit Provider Physician Assistant
DX: S43.101A Unspecified dislocation of right acromioclavicular joint, initial encounter (principal); W23.2XXA Caught, crushed, jammed or pinched between a moving and stationary object, initial encounter; Y92.69 Other specified industrial and construction area as the place of occurrence of the external cause; Y99.0 Civilian activity done for income or pay
CPT/HCPCS: 73030

== ENCOUNTER 2025-08-27 11:54 | Outpatient (AMB) | payer OTHER, SELFPAY ==
--- NOTE | 2025-08-27 12:05 | A.OFFVIS_ITS ---
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 She was moving the patient with the hooer lift and she co worker pushed the lift and it struck her, she was in between the door with a wheel chair behind it. Patient hurt her ankle with the door and her shoulder. Patient states that her pain is minimal. She notices some discomfort when she is lifting her arm. Patient is going to [facility] for her shoulder. Allergies No Known Allergies Allergy (Verified 08/27/25 12:15) HPI Comments Details: History of Present Illness The patient is a 59 year old female presenting for evaluation of right shoulder pain. 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 Another coworker pushed the wandy lift into her accidentally, which caused the patient to be forced backward, hitting her right shoulder against a doorframe and her ankle against a wheelchair. The patient, who is right-hand dominant, reports subsequent pain on the top of her shoulder, especially when lifting objects or overhead reaching. She has had X-rays performed for this injury. She has been receiving physical therapy, but the current course is ending. She is currently out of work due to the shoulder and an ankle issue. Pain Description - Onset: The pain began in June after a specific injury at work. - Location: The pain is located at the top of the right shoulder. - Quality: The patient describes a feeling of pressure when reaching overhead and a pinching sensation when moving her arm across her body. - Exacerbating Factors: Pain is worsened by lifting objects and reaching above shoulder height. - Functional Impact: The injury prevents her from working. [facility] Medical History Right ankle injury Right ankle sprain Right ankle pain Gastroenteritis [place] of foot GERD without esophagitis Surgical History No pertinent past surgical history Family History Father Glaucoma Mother No problems noted. Sister No problems noted. Sister No problems noted. Social History Household Members: Children Housing: House Are you a primary body care manager to a significant other at home: No Do you presently have visiting nurse or other home services: No 75 years or older and lives alone: No Alcohol intake: never Patient Tobacco Use Status: Never used Tobacco e-Cigarette/Vaping Use: Never Used Second Hand Smoke Exposure: No service: No Current occupational status: employed Current occupation: [employer], [employer] Sexual orientation: Straight/Heterosexual Gender identity: Female Cognitive needs: No Hearing needs: No Vision needs: Yes (wears glasses, needs eye doctor) Review of Systems Narrative Review of Systems - Musculoskeletal: Reports right shoulder pain on the top of the shoulder, especially with lifting and reaching overhead. - She reports pressure on shoulder elevation and a pinching sensation with cross-body adduction. - She reports a history of hitting her right ankle during the same incident. - She also reports an ankle issue contributing to her being out of work. Physical Exam Exam Exam: Physical Exam - Right Shoulder: Examination reveals full active forward flexion and abduction with a report of pressure at the terminal range. - Able to reach T12. - External rotation to 45 degrees - Positive cross-body reach. - Negative drop arm - Negative empty can - NVI Const General: cooperative, healthy appearing and no acute distress Resp Effort & Inspection: normal respiratory effort and able to speak in complete sentences Psych Appearance: grossly normal Mental Status: mental status grossly normal Attitude: cooperative Assessment & Plan Assessment & Plan (1) Separation of right acromioclavicular joint, type 2: Code(s): S43.101A - Unspecified dislocation of right acromioclavicular joint, initial encounter Category: Medical Plan 1. Grade 2 AC joint separation, right A review of the patient's X-rays that were obtained in the office today demonstrate a grade 2 AC joint separation of the right shoulder. This is a non-surgical injury that may take several months to fully resolve. The patient will have a new order placed for physical therapy to continue improving her range of motion and strength while managing inflammation. She is to follow up in 4-6 weeks to reassess her condition with a goal of returning her to work at that time. A work note to remain out of work until follow up was provided to the patient. She will follow up in 4-6 weeks, sooner if needed. Consent Patient was informed and verbally consented to the use of an ambient scribe for clinic note documentation during this visit. Orders: Orders XR shoulder RT min 2V Today M25.519 - Pain in unspecified shoulder PT Evaluation and Treatment Today S43.101A - Unspecified dislocation of right acromioclavicular joint, initial encounter Coding Level of Care Code New Pt Level 4 (61023) Add On Problem Visit Only Diagnoses Separation of right acromioclavicular joint, type 2 S43.101A
--- OUTSIDE RECORDS SUMMARY | 2025-08-27 14:01 | XMS_ITS | Clinical Summary ---
Author Organization [facility] Address [address] [facility] [address] [place] [address] Phone Care Team Providers Care Logistics Tech Name Role Phone Unavailable Primary Care Provider [...] per pt, and last pap smear in [facility] circa 5 yrs ago. PM [...] EDT) HDL 65(H) 40 - 60 mg/dL [facility] CHOLESTEROL 184 0 - 199 mg/dL [facility] Comment:DESIRABLE: <200 TRIGLYCERIDES 57 40 - 150 mg/dL [facility] LDL 108 0 - 129 mg/dL [facility] Comment: < 100 Optimal, if known or suspected vascular disease is present < 130 Near optimal, if risk factors for vascular disease are present Guidelines set by National Cholesterol Education Program (Adult Treatment Panel III) CARDIAC RISK RATIO 2.8 0.0 - 4.0 B [facility] Blood 12/21/2016 9:13 AM EDT 12/21/2016 1:19 PM EDT us Stephen Bueno MD LAB BLOOD BKR [place] [address] * Mammogram Screening With Tomosynthesis With CAD [...] (11/17/2015 12:00 AM EST) 11/17/2015 11/18/2015 Narrative [facility] - 11/22/2015 10:27 AM EDT CASE: [id number] PATIENT: MARIO SHAH Specimen(s) Received THINPREP PAP TEST, CERVICAL [facility] Department of Pathology [address] [place] [address] FINAL DIAGNOSIS SPECIMEN ADEQUACY: Satisfactory for evaluation; [...] Bueno MD CYTOLOGY [place] [address] * Hepatitis C antibody, qualitative (07/05/2015 4:53 PM EDT) HCV ANTIBODY Negative Negative [facility] 07/05/2015 4:53 PM EDT 07/05/2015 6:55 PM EDT Stephen Bueno MD LAB BLOOD BKR ORDERABLES Yamini eb Result [facility] [address] [place] [address] from Last 3 Months or Most Recently Relevant to Health Maintenance Insurance [employer] NON MGB PCP [employer] NON B PCP P [employer] NON MGB PCP [employer] NON MGB PCP [employer] NON MGB PCP [employer] NON MGB PCP [employer] NON MGB PCP [employer] NON MGB PCP [address] [place] [address] MGP [facility] NON MGB PCP Additional Source Comments The information contained in this document represents components of the legal health record. It is not the complete legal health record.[facility]
--- OUTSIDE RECORDS SUMMARY | 2025-08-27 14:01 | XMS_ITS | Encounter Summary ---
Author Organization [employer] [facility] Address [address] [place] [address] [place] [address] Phone Care Team Providers Care Size Painter Name Role Phone Stephen Bueno MD Primary Care Provider [phone] Stephen Bueno MD Unavailable [phone] Stephen Bueno MD Unavailable [phone] Blas Evans MD, PhD Primary Care Prov ider Encounter Details Date Type Department Care Team (Latest Contact Info) Description 02/16/2015 Transcribe Orders [facility] Radiology [address] [place] [address] Janet [email or web address] Abnormal mammogram (Primary Dx) Social History Tobacco [...] unspecified documented in this encounter Care Teams Size Painter Relationship Specialty Start Date End Date Stephen Bueno MD [address] [place] [phone] PCP - General Internal Medicine 02/03/15 01/17/18 Blas Evans MD, PhD [address] [place] [address] [email or web address] PCP - General Internal Medicine 01/18/18 05/29/21 Stephen Bueno MD [address] [place] [address] Insurance Assigned Provider 04/09/15 12/07/17 Stephen Bueno MD [address] [place] [address] [employer] Attributed Provider 11/13/15 02/15/18 documented as of this encounter Additional Source Comments The information contained in this document represents components of the legal health record. It is not the complete legal health record.[facility]
--- OUTSIDE RECORDS SUMMARY | 2025-08-27 14:01 | XMS_ITS | Encounter Summary ---
Author Organization [facility] Address [address] [facility] [address] [place] [phone] Phone Care Team Providers Care Derrick Hand Name Role Phone Stephen Bueno MD Primary Care Provider [phone] Stephen Bueno MD Unavailable [phone] Stephen Bueno MD Unavailable [phone] Blas Evans MD, PhD Primary Care Prov ider Encounter Details Date Type Department Care Team (Latest Contact Info) Description 02/12/2015 Transcribe Orders [facility] [address] [address] Jessie Sotomayor, RT [email or web address] Screening breast examination (Primary Dx) [...] examination documented in this encounter Care Teams Derrick Hand Relationship Specialty Start Date End Date Stephen Bueno MD [address] [place] [id number] PCP - General Internal Medicine 02/03/15 01/17/18 Blas Evans MD, PhD [facility] [place] [address] [email or web address] PCP - General Internal Medicine 01/18/18 05/29/21 Stephen Bueno MD [address] [place] [address] Insurance Assigned Provider 04/09/15 12/07/17 Stephen Bueno MD [address] [place] [phone] [employer] Attributed Provider 11/13/15 02/15/18 documented as of this encounter Additional Source Comments The information contained in this document represents components of the legal health record. It is not the complete legal health record.[facility]
--- OUTSIDE RECORDS SUMMARY | 2025-08-27 14:01 | XMS_ITS | Encounter Summary ---
Author Organization [facility] Address [address] [facility] [address] [place] [phone] Phone Care Team Providers Care Computer Publisher Name Role Phone Stephen Bueno MD Primary Care Provider [phone] Stephen Bueno MD Unavailable [phone] Stephen Bueno MD Unavailable [phone] Blas Evans MD, PhD Primary Care Prov ider Encounter Details Date Type Department Care Team (Latest Contact Info) Description 04/05/2016 Transcribe Orders [facility] [address] [address] Janet [email or web address] Visit for screening mammogram (Primary Dx) Social [...] Primary documented in this encounter Care Teams Computer Publisher Relationship Specialty Start Date End Date Stephen Bueno MD [address] [place] [phone] PCP - General Internal Medicine 02/03/15 01/17/18 Blas Evans MD, PhD [address] [place] [phone] [email or web address] PCP - General Internal Medicine 01/18/18 05/29/21 Stephen Bueno MD [address] [place] [phone] Insurance Assigned Provider 04/09/15 12/07/17 Stephen Bueno MD [address] [place] [phone] [employer] Attributed Provider 11/13/15 02/15/18 documented as of this encounter Additional Source Comments The information contained in this document represents components of the legal health record. It is not the complete legal health record.[facility]
== END 2025-08-27 12:58 | disposition home or self-care (01) ==
PROVIDERS: PCP Family Medicine; Visit Provider Physician Assistant
DX: S43.101A Unspecified dislocation of right acromioclavicular joint, initial encounter (principal)
CPT/HCPCS: 99203; G2211

== ENCOUNTER → 2025-08-27 11:57 | Outpatient (BNV) | payer OTHER, SELFPAY | PROVIDERS: Visit Provider Radiology Diagnostic Radiology | DX: M25.511 Pain in right shoulder (principal) | CPT/HCPCS: 73030 ==